=== PATIENT | male | born 1965 | race African-American/Black ===

== ENCOUNTER 2016-09-23 12:12 | Inpatient (IN) | payer OTHER ==
[2016-09-23 13:47] LABS: ALBUMIN 4.6 g/dL (3.5-5.0); CALCIUM 9.4 mg/dL (8.8-10.2); POTASSIUM 4.9 mmol/L (3.5-5.1); TOTAL BILIRUBIN 0.23 mg/dL (0.20-1.00); TOTAL PROTEIN 7.5 g/dL (6.3-8.3)
[2016-09-23 14:35] LABS: HEMATOCRIT 17.4 % (42.0-52.0); MANUAL DIFF NEEDED? YES; MCH 22.5 PG (27-31); MCV 97.8 FL (81-99); PLT 54 X1000 (130-400); RBC 1.78 XMIL (4.7-6.1)
[2016-09-23 15:21] LABS: INR 1.04; PTT 23.1 Seconds (22.0-36.0)
[2016-09-23 15:34] LABS: LYMPHS 84 % (21-51); MONO 6 % (1-9)
--- NOTE | 2016-09-23 15:45 | PROVIDER DOCUMENTATION ---
HPI-General Adult - General Chief Complaint: Allergic Reaction Stated Complaint: ALLERGIC REACTION Time Seen by Provider: 09/23/16 12:37 Source: patient Allergies/Adverse Reactions: Patient Allergies Allergy/AdvReac Type Severity Reaction Status Date / Time No Known Allergies Allergy Verified 10/21/12 19:48 Home Medications: Home Medication List Medication Instructions Recorded Confirmed Last Taken Type Hydroxyzine [Atarax] 25 mg PO TID 09/23/16 09/23/16 09/22/16 History Methylprednisolone [Medrol Dosepak] 4 mg PO DIRECTED 09/23/16 09/23/16 History - History of Present Illness -Gen Adult Nature of Presenting Problems: This pt presents today c complaints of what he believes may be an allergic reaction. 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 He reports mild inguinal pain. No fever, chills, n/v/d. No other complaints at this time. Location of Pain/Injury: reports: other (see hpi) Quality of Pain: reports: aching Severity: reports: mild Onset/Duration: reports: 2 days ago Timing: reports: still present, getting worse Associated Symptoms: reports: rash Similar Symptoms Previously?: No Recently seen or treated by another doctor?: No Review of Systems - Adult - REVIEW OF SYSTEMS - ADULT Constitutional: reports: no symptoms reported. denies: chills, fever Eyes: reports: no symptoms reported. denies: discharge, dry eyes Ears, Nose, Mouth & Throat: reports: no symptoms reported. denies: ear discharge, ear pain Cardiovascular: reports: no symptoms reported. denies: chest pain, edema Respiratory: reports: no symptoms reported. denies: chronic cough, cough Gastrointestinal: reports: no symptoms reported. denies: abdominal pain, hematemesis Genitourinary: reports: see HPI. denies: hematuria, hesitency Musculoskeletal: reports: no symptoms reported. denies: bone pain, back pain Integumentary: reports: see HPI, itching, rash. denies: hives, hair loss Neurological: reports: no symptoms reported. denies: ataxia, dizziness/vertigo Psychiatric: reports: no symptoms reported. denies: anxiety, anti-depressant use Endocrine: reports: no symptoms reported. denies: change in skin pigment, excessive sweating Hematologic/Lymphatic: reports: swollen lymph nodes. denies: blood clots, easy bruising Allergic/Immunologic: reports: no symptoms reported All Other Systems: Reviewed and Negative Past History - Adult - PAST MEDICAL HISTORY-ADULT Review of Records: reports: Old Records Reviewed, Nursing Assessment Review, Medications Reviewed, Social history reviewed & non-contributory. Major Childhood Illnesses: reports: denies history Cardiovascular: reports: denies history Respiratory: reports: denies history Gastrointestinal: reports: denies history Obstetrical/Gynecological: reports: denies history Genitourinary: reports: denies history Musculoskeletal: reports: denies history Neurological: reports: denies history Endocrine/Immune: reports: denies history Other Conditions: reports: denies history Physical Exam-General - PHYSICAL EXAM-ADULT Initial Vital Signs Reviewed: Yes - CONSTITUTIONAL General Appearance: appears well, alert, no apparent distress - EYES Eyes: PERRL/EOMI, pink conjunctivae - HEAD, EARS, NOSE, MOUTH & THROAT HENMT: normocephalic/atraumatic, moist mucous membranes, normal ENT inspection - NECK Neck: non-tender, full range of motion - RESPIRATORY Respiratory: chest non-tender, lungs clear, normal breath sounds - CARDIOVASCULAR Cardiovascular: normal peripheral pulses, regular rate, rhythm - GASTROINTESTINAL (ABDOMEN) Abdominal Exam: normal bowel sounds, non tender, soft - GENITOURINARY Male Genitalia: normal genitalia, hydrocele, inguinal lymphadenopathy, inguinal tenderness. negative: epididymal tenderness, scrotal swelling - LYMPHATIC Lymphatic: inguinal node tender, enlargement - MUSCULOSKELETAL Back Exam: normal inspection Extremity: normal range of motion, non-tender, normal gait - SKIN Integumentary: normal color, normal turgor, warm/dry - NEUROLOGIC Neurologic: grossly normal, no motor/sensory deficits Progress - PLAN OF CARE/RESULTS Progress/Plan/Lab Results: Laboratory Tests 09/23/16 09/23/16 09/23/16 13:16 13:16 13:26 WBC > 400.00 H* RBC 1.78 L Hgb 4.0 L* Hct 17.4 L MCV 97.8 MCH 22.5 L MCHC 23.0 L RDW Std Deviation Not Reportable Plt Count 54 L MPV Not Reportable Neut % (Auto) Not Reportable Lymph % (Auto) Not Reportable [place] % (Auto) Not Reportable Eos % (Auto) Not Reportable Baso % (Auto) Not Reportable Neut # (Auto) Not Reportable Lymph # (Auto) Not Reportable [place] # (Auto) Not Reportable Eos # (Auto) Not Reportable Baso # (Auto) Not Reportable Lymphocytes 84 H Monocytes 6 Unidentified Cells 10.0 PT 11.0 INR 1.04 PTT (Actin FS) 23.1 Sodium 140 Potassium 4.9 Chloride 100 Carbon Dioxide 24 L Anion Gap 16 BUN 25 H Creatinine 1.5 H Estimated GFR/1.73 m2 60 BUN/Creatinine Ratio 17 Glucose 116 H Calculated Osmolality 285 Calcium 9.4 Total Bilirubin 0.23 AST 11 ALT 12 Alkaline Phosphatase 118 Total Protein 7.5 Albumin 4.6 Globulin 2.9 Albumin/Globulin Ratio 1.6 Orders Category Date Time Status Saline Loc NOW Care 09/23/16 12:55 Active US SCROTUM [US] Stat Exams 09/23/16 13:17 Taken CBC WITH ELECTRONIC DIFF [HEME] Stat Lab 09/23/16 13:16 Results COMPREHENSIVE METABOLIC PANEL [CHEM] Stat Lab 09/23/16 13:16 Completed PROTIME WITH INR [COAG] Stat Lab 09/23/16 13:26 Completed PTT [COAG] Stat Lab 09/23/16 13:26 Completed TYPE & SCREEN [BBK] Stat Lab 09/23/16 13:16 Received Vital Signs Temp Pulse Resp BP Pulse Ox 09/23/16 12:35 99.1 F 110 H 18 120/68 100 No Known Allergies Allergy (Verified 10/21/12 19:48) Hydroxyzine [Atarax] 25 mg PO TID 09/23/16 Methylprednisolone [Medrol Dosepak] 4 mg PO DIRECTED 09/23/16 Laboratory 09/23/16 09/23/16 09/23/16 13:26 13:16 13:16 WBC > 400.00 H* RBC 1.78 L Hgb 4.0 L* Hct 17.4 L MCV 97.8 MCH 22.5 L MCHC 23.0 L RDW Std Deviation Not Reportable Plt Count 54 L MPV Not Reportable Neut % (Auto) Not Reportable Lymph % (Auto) Not Reportable [place] % (Auto) Not Reportable Eos % (Auto) Not Reportable Baso % (Auto) Not Reportable Neut # (Auto) Not Reportable Lymph # (Auto) Not Reportable [place] # (Auto) Not Reportable Eos # (Auto) Not Reportable Baso # (Auto) Not Reportable Lymphocytes 84 H Monocytes 6 Unidentified Cells 10.0 PT 11.0 INR 1.04 PTT (Actin FS) 23.1 Sodium 140 Potassium 4.9 Chloride 100 Carbon Dioxide 24 L Anion Gap 16 BUN 25 H Creatinine 1.5 H Estimated GFR/1.73 m2 60 BUN/Creatinine Ratio 17 Glucose 116 H Calculated Osmolality 285 Calcium 9.4 Total Bilirubin 0.23 AST 11 ALT 12 Alkaline Phosphatase 118 Total Protein 7.5 Albumin 4.6 Globulin 2.9 Albumin/Globulin Ratio 1.6 I am concerned about potential lymphocytic leukemia based on exam and labs. He reports that he used to see Dr. Brown but is no longer established c him. Will admit to hospitalist service. - ULTRASOUND (By Radiology) 1 US Study: Scrotum US Results: severe inguinal adenopathy; massive bilateral hydroceles; otherwise nad - CONSULTS/PCP/HOSPITALIST Notification #1 *Consult/PCP/Hospitalist*: Dr. Oakley Time Discussed: 15:46 Consult Disposition: Admit Departure - Departure Time of Disposition Order: 15:46 DIAGNOSIS: Inguinal adenopathy, Thrombocytopenia Leukocytosis Qualifiers: Leukocytosis type: lymphocytosis Qualified Code(s): D72.820 - Lymphocytosis ( symptomatic) Anemia Qualifiers: Anemia type: unspecified type Qualified Code(s): D64.9 - Anemia, unspecified Disposition: ADMITTED INPATIENT 09 Certified Medical Emergency: Emergent Condition: Stable Attestation - Physician/ ROBERT Attestation Patient care was provided by Advanced Practice Provider:: Yes Advanced Practice Provider:: Massimo Powell Advanced Practice Provider documentation review:: The Mid-level provider documentation, treatment plan and medical decision making was reviewed by the physician who agrees with all treatment and medical decision making by the P.
--- NOTE | 2016-09-23 15:55 | Diag Imaging Result Document ---
PROCEDURE NAME: US SCROTUM - 09/23/2016 SCROTAL ULTRASOUND: COMPARISON: None available. FINDINGS: There is very severe inguinal lymphadenopathy bilaterally. The largest measured inguinal lymph node on the right is 3.7 x 3.6 x 2.2 cm. On the left, the largest node is 3.2 x 3.1 x 2.2 cm. Lymphoma cannot be excluded. There are massive hydroceles bilaterally. The hydrocele on the right measures up to 11.1 cm in the greatest dimension. The hydrocele on the left measures up to 9 cm in the greatest dimension. There are a couple of subcentimeter cystic foci at the periphery of the left testicle and one at the periphery of the right testicle. These probably represent tiny tunica albuginea cysts. No solid testicular mass is identified. Both testicles exhibit normal Doppler flow. The right testicle measures up to 4.1 cm and the left testicle measures up to 4.1 cm in the greatest dimensions. The left epididymis could not be visualized. The right epididymis contains a 5 mm cyst. It is unremarkable, otherwise. There are bilateral testicular appendices that exhibit normal Doppler flow. Fluid is extending into the right inguinal canal where it contains several septations. IMPRESSION: 1. Very severe bilateral inguinal lymphadenopathy worrisome for potential lymphoma. 2. Massive bilateral hydroceles. 3. Subcentimeter cystic foci at the periphery of both testicles likely representing tiny tunica albuginea cysts. 4. No discrete testicular solid mass is identified and the testicles exhibit normal Doppler flow.
[2016-09-23 17:11] LABS: URIC ACID 6.6 mg/dL (3.4-7.0)
[2016-09-23] MEDS ORDERED: NS 1,000 ML IV SCH (17:45)
[2016-09-23] MEDS ORDERED: NS 1,000 ML ONE (17:52)
--- NOTE | 2016-09-23 19:01 | HISTORY AND PHYSICAL ---
CHIEF COMPLAINT: Bilateral inguinal masses. HISTORY OF PRESENT ILLNESS: A 51-year-old, male with no significant past medical history came to the emergency department with a chief complaint of bilateral inguinal masses and generalized itchiness. The patient states that he never had this kind of problem before. He started noticing itchiness after taking a bath with hot water last Tuesday. The next day he continued with the itchiness and also he started noticing some kind of inguinal lymphadenopathy. He went to a hospital/urgent care and was seen by apparently by a doctor, who recommended some antibiotics and steroids. The patient went home and he took his medications as prescribed but the masses at the level of the inguinal area were getting bigger and the itchiness was still present so he decided to come to the hospital today 09/23/2016 for medical evaluation. This patient was evaluated by Dr. Foster in the emergency department. Given his lab work and the physical examination, Dr. Foster from Hematology/Oncology, thinks that maybe this patient has leukemia or lymphoma. He was found in the emergency department to have WBC higher than 400, 000, hemoglobin was 4, platelets 54,000, BUN 25, and creatinine 1.5. Surprisingly this patient is not complaining of nausea, vomiting, fever or chills. This patient will be admitted to the [facility] unit. REVIEW OF SYSTEMS: General: This patient denies weight loss, nausea, vomiting , fever, diarrhea or constipation. The rest of the 14 point review of systems were evaluated and all of them negative except for HPI. PAST MEDICAL HISTORY: None. PAST SURGICAL HISTORY: Left knee surgery secondary to patella fracture. SOCIAL HISTORY: He denies alcohol, cigarette smoking, drugs. He works in maintenance/electricity. The patient is . ALLERGIES: No known drug allergies. TRANSFUSIONS: No blood transfusions before. HOME MEDICATIONS: No home medications. FAMILY HISTORY: Mother with hypertension. One aunt leukemia and grandmother with breast cancer. PHYSICAL EXAMINATION: VITAL SIGNS: Temperature 99.1 degrees, pulse 108, respiratory rate 32, blood pressure 121/71, oxygen saturation 100% on room air. HEENT: Head normocephalic. No trauma. PERRLA. NECK: Supple. He got submandibular lymphadenopathy and also occipital in the back of his neck. The largest diameter is about 4 cm on the left side of his neck. CHEST: Clear to auscultation. No wheezing. No rales. CARDIOVASCULAR: RRR. No murmurs. Tachycardic. ABDOMEN: Soft, nontender, nondistended. I do not feel any hepatosplenomegaly. GENITOURINARY: He has 2 large masses/lymphadenopathy bilaterally in the inguinal area and the size is about 10 x 5, mild tenderness to palpation without signs of infection. EXTREMITIES: No edema. No clubbing. No cyanosis. NEUROLOGICAL EXAMINATION: Patient is alert and oriented x3. No focal neurological deficits. LABORATORY: WBC more than 400,000, hemoglobin 4, hematocrit 17.4, platelets 54, 000. PT 11, INR 1, PTT 23.1. Sodium 140, potassium 4.9, chloride 100, bicarbonate 24, BUN 25, creatinine 1.5, glucose 116, uric acid 6.6, calcium 9.4, phosphorus 3.9, AST 11, ALT 12, alkaline phosphatase 118, albumin 4.6. ASSESSMENT AND PLAN: 1. Multiple lymphadenopathy, mainly in the inguinal area. Dr. Foster from Hematology/Oncology Department evaluated this patient. The possibility of leukemia/lymphoma is high. We are going to run some tests to see if this is an acute or chronic process. Also this patient will be on allopurinol and normal saline at 125 mL/h, acetaminophen for fever and SCDs for DVT prophylaxis. The family is at the bedside. All questions were answered. 2. Severe anemia. Right now this patient is going to get 2 units of PRBCs. We will monitor the hemoglobin and hematocrit. 3. Acute kidney injury. BUN and creatinine are a little bit elevated, it is around 25 and 1.5 respectively. We do not have a baseline on this patient. We will continue to monitor. This patient will be on IV fluids. 4. DVT prophylaxis. This patient will be on SCDs. 5. GI prophylaxis. This patient will be on pantoprazole IV. Further recommendations pending hospital course. [facility]
[2016-09-23] MEDS: NS 1,000 ML IV SCH (20:24)
[2016-09-23] MEDS: ZYLOPRIM PO SCH ×2 (20:24)
[2016-09-23] MEDS: PROTONIX IV SCH (20:25)
[2016-09-23] MEDS: TYLENOL PO PRN (21:10)
[2016-09-24 03:49] LABS: BASO% 1.4 % (0.0-0.8); EOS# 0.07 X1000 (0.0-0.7); HEMATOCRIT 20.8 % (42.0-52.0); HEMOGLOBIN 5.6 g/dL (14.0-18.0); LYMPH# 444.13 X1000 (1.2-3.4); LYMPH% 95.4 % (20.5-51.1); MANUAL DIFF NEEDED? YES; MCH 25.7 PG (27-31); MCHC 26.9 g/dL (33-37); MCV 95.4 FL (81-99); MONO# 14.85 X1000 (0.11-0.59); MONO% 3.2 % (1.7-9.3); PLT 44 X1000 (130-400); RBC 2.18 XMIL (4.7-6.1)
[2016-09-24 06:42] LABS: LYMPHS 96 % (21-51)
[2016-09-24 06:43] LABS: HYPOCHROM 2+
[2016-09-24] MEDS: NS 1,000 ML IV SCH ×2 (07:58→20:20)
[2016-09-24] MEDS: ZYLOPRIM PO SCH ×2 (07:59→20:20)
[2016-09-24] MEDS ORDERED: SENSORCAINE-MPF 0.5%/EPI 1:200,000 INJ ONE (08:17)
--- NOTE | 2016-09-24 08:29 | Diag Imaging Result Document ---
PROCEDURE NAME: CHEST-PORTABLE - 09/23/2016 SINGLE FRONTAL RADIOGRAPH OF THE CHEST: COMPARISON: None available. FINDINGS: The lungs are grossly clear. There is no definite pleural fluid collection. Cardiac silhouette appears somewhat prominent, probably, at least in part, due to magnification from AP technique. Central vasculature is unremarkable. No obvious hilar lymphadenopathy can be identified on this plain radiograph. IMPRESSION: Possible [id number] prominent heart. No definite acute pathology.
[2016-09-24] MEDS ORDERED: SENSORCAINE-MPF 0.5%/EPI 1:200,000 ONE (09:21)
[2016-09-24 09:41] LABS: FLOW CYTOMETERY SOURCE WHOLE BLOOD; LEUKEMIA LYMPHOMA BY FLOW REFERRED FOR TESTING
[2016-09-24 10:03] LABS: INR 1.07; PROTIME 11.4 Seconds (9.2-11.7)
[2016-09-24] MEDS ORDERED: DIPRIVAN 1% ONE (10:29)
[2016-09-24] MEDS ORDERED: VERSED ONE (10:34)
[2016-09-24] MEDS ORDERED: XYLOCAINE-MPF 2% ONE (10:36)
[2016-09-24 10:39] LABS: AGAP 15; ALKALINE PHOSPHATASE 104 U/L (32-122); BUN 21 mg/dL (8-22); CALCIUM 8.7 mg/dL (8.8-10.2); CHLORIDE 102 mmol/L (98-107); COSMO 285; GOT 9 U/L (10-34); GPT 9 U/L (10-44); POTASSIUM 4.1 mmol/L (3.5-5.1); SODIUM 141 mmol/L (136-145); TCO2 24 mmol/L (25-35); TOTAL BILIRUBIN 0.78 mg/dL (0.20-1.00); TOTAL PROTEIN 6.1 g/dL (6.3-8.3)
[2016-09-24 11:12] LABS: BASO% 1.2 % (0.0-0.8); EOS# 0.06 X1000 (0.0-0.7); HEMATOCRIT 25.3 % (42.0-52.0); HEMOGLOBIN 6.7 g/dL (14.0-18.0); MANUAL DIFF NEEDED? YES; MCH 26.2 PG (27-31); MCHC 26.5 g/dL (33-37); MCV 98.8 FL (81-99); PLT 45 X1000 (130-400); RBC 2.56 XMIL (4.7-6.1)
[2016-09-24 11:23] LABS: EOS 2 % (1-10); HYPOCHROM 1+; LYMPHS 90 % (21-51); NRBC 1 % (0-0); POLYCHROM OCCASIONAL
--- NOTE | 2016-09-24 12:07 | PROGRESS NOTE ---
DATE: 09/24/2016 SUBJECTIVE: This patient states that he is feeling about the same. He is not complaining of any specific symptoms at this moment. He just came back from a bone marrow biopsy, no sign of bleed at this moment. He has been running low-grade fever, pending lab work to rule out acute or chronic activity. OBJECTIVE: Vital Signs: Temperature 100.2 degrees, pulse 98, respiratory rate 16, blood pressure 113/68, O2 saturation 100% on room air. HEENT: Head normocephalic. No trauma. PERRLA. Neck: Supple. Submandibular lymphadenopathy and on the back of his neck. The largest diameter is about 4 cm on the left side of his neck. Chest: Clear to auscultation. No wheezing. No rales. Cardiovascular: RRR. No murmurs. No gallops. No rubs. Abdomen: Soft, nontender, nondistended. I do not feel any hepatosplenomegaly. Genitourinary: He has 2 large masses/lymphadenopathy bilaterally in the inguinal area and the size is about 10 x 5 cm, mild tenderness to palpation without signs of infection. Extremities: No edema. No clubbing. No cyanosis. Neurological: The patient is alert and oriented x3. No focal neurological deficits. LABORATORY: WBC is [id number] white blood cells. Hemoglobin 6.7, hematocrit 25.3, platelets 45,000. Sodium 141, potassium 4.1, chloride 102, bicarbonate 24, BUN 21, creatinine 1.4. Glucose 107. Calcium 8.7. Pending flow cytometry to rule out leukemia/lymphoma. Pending bone marrow biopsy results. ASSESSMENT AND PLAN: 1. Multiple adenopathy worrisome for lymphoma/leukemia. Hematology/Oncology Department is on board, and we are waiting for lab results and biopsy results. The patient is stable. I will continue with the same treatment for now. Because of a decrease of neutrophils I will put this patient on neutropenic precautions. 2. Severe anemia. I will come will continue transfusing this patient. The hemoglobin is below 7 still. 3. Acute kidney injury. BUN and creatinine are a little bit elevated still but compared with yesterday is a little bit better. I do not have a baseline of this patient. We will continue to monitor. This patient is already on IV fluids. 4. DVT prophylaxis. This patient will be on SCDs. 5. GI prophylaxis. I will continue with the same treatment. He is on pantoprazole IV.
[2016-09-24] MEDS: TYLENOL PO PRN ×2 (14:08→23:28)
[2016-09-24] MEDS: HYDREA PO SCH (14:10)
[2016-09-24] MEDS ORDERED: SODIUM CHLORIDE 0.9% INJ PRN (15:05)
[2016-09-24] MEDS ORDERED: PHENERGAN IV PRN (15:05)
--- NOTE | 2016-09-24 16:44 | CONSULTATION ---
DATE OF CONSULTATION: 09/23/2016 CONSULTATION FOR: A WBC count of greater than 400,000 worrisome for lymphoma versus leukemia. CONSULTATION REQUESTED BY: Hospitalist service. HISTORY OF PRESENT ILLNESS: Mr. Powell is a 51-year-old male who presented to [facility] complaining of scrotal swelling. The patient thought he was having allergic reaction as he was out working in the yard at his [employer] when he started to notice the symptoms. He was brought to the emergency room and labs were drawn and revealed him to have white blood cell count of greater than 400,000. He also had a hemoglobin of 4.0 and a platelet count of 54,000. Scrotal ultrasound showed the patient to have severe bilateral inguinal lymphadenopathy worrisome for lymphoma. The patient has now been admitted for further evaluation and workup. At this time he is status post bone marrow biopsy. He has no other issues or complaints at this time. PAST MEDICAL HISTORY: None. PAST SURGICAL HISTORY: Status post left knee surgery secondary to patella fracture. SOCIAL HISTORY: He currently works daytime caregiver. He is . He denies any alcohol, drug or tobacco use. FAMILY HISTORY: His mother has hypertension. His father had an [place]. His maternal grandmother had breast cancer. His maternal aunt had leukemia which he states is CLL. REVIEW OF SYSTEMS: As per the HPI. All else is negative or noncontributory. PHYSICAL EXAM: Vital Signs: Temperature currently is 100.2, T-max is 102 degrees, heart rate is 98, respirations 16, blood pressure 113/68, O2 saturation 100% on room air. General: male lying in hospital bed. No acute distress. He has 3 family members by his bedside. He did recently have his bone marrow so he is in a mild amount of pain. HEENT: Head normocephalic, atraumatic. Pupils equal, round, reactive. Ears, nose, throat, neck, and mouth. Oral mucosa is normal. Trachea is midline. Patient does have scattered adenopathy throughout the cervical region. Most are subcentimeter to no larger than 1 cm. Cardiovascular: S1-S2 heard, no murmurs, gallops, rubs appreciated. Respiratory: Clear to auscultation bilaterally. No respiratory effort. Abdomen: Soft, nondistended. Positive bowel sounds. Musculoskeletal: No bony abnormalities noted. Extremities: No edema or swelling. Skin: No rashes. Neurologic: Patient is alert and oriented x3. No focal motor deficits. Lymphatics: Patient has severe bilateral inguinal adenopathy. LABS AND STUDIES: The patient's current CBC shows a white blood cell count of 479.59, a hemoglobin of 6.7, hematocrit 25.3 and a platelet count of 45,000. His flow cytometry is currently pending. His FISH is pending. His bone marrow biopsy results are also pending. ASSESSMENT AND PLAN: 1. He has inguinal lymphadenopathy as well as a severely elevated white blood cell count. Most likely the patient has a chronic lymphocytic leukemia that is not currently under very good control. As previously mentioned, he has several studies that are currently pending that are all part of making a definitive diagnosis. Will follow these results and once they return will proceed with further treatment and recommendations. 2. Profound anemia secondary to what is likely a leukemia. Will continue to transfuse p.r.n. Patient has already received 3 units of packed red blood cells and is about to get a 4th unit. 3. Thrombocytopenia. Patient is overall stable. No bleeding. Will continue to monitor. Transfuse as needed. 4. Tumor lysis syndrome prophylaxis. Patient is currently on allopurinol which will continue at 300 mg twice a day. I want to thank you for this consult, allowing us to participate in Mr. Powell's care at [facility]. Will continue to follow along, adjust our treatment plan per his hospital course. Dictated by SYED Terry for Ana Foster MD
[2016-09-24] MEDS: SODIUM CHLORIDE 0.9% INJ SCH (17:24)
[2016-09-24] MEDS: PROTONIX IV SCH (17:24)
[2016-09-25] MEDS: NS 1,000 ML IV SCH ×3 (03:43→22:30)
[2016-09-25 05:47] LABS: AGAP 13; ALBUMIN 3.5 g/dL (3.5-5.0); ALKALINE PHOSPHATASE 90 U/L (32-122); BUN 21 mg/dL (8-22); CALCIUM 8.5 mg/dL (8.8-10.2); CHLORIDE 102 mmol/L (98-107); COSMO 279; GOT 12 U/L (10-34); GPT 11 U/L (10-44); POTASSIUM 4.7 mmol/L (3.5-5.1); SODIUM 138 mmol/L (136-145); TCO2 23 mmol/L (25-35); TOTAL BILIRUBIN 0.72 mg/dL (0.20-1.00); TOTAL PROTEIN 5.9 g/dL (6.3-8.3); URIC ACID 3.3 mg/dL (3.4-7.0)
[2016-09-25 05:48] LABS: BASO% 0.7 % (0.0-0.8); EOS# 0.02 X1000 (0.0-0.7); HEMOGLOBIN 6.5 g/dL (14.0-18.0); LYMPH# 311.96 X1000 (1.2-3.4); MANUAL DIFF NEEDED? YES; MCH 25.9 PG (27-31); MCHC 27.1 g/dL (33-37); MCV 95.6 FL (81-99); MONO# 10.86 X1000 (0.11-0.59); MONO% 3.3 % (1.7-9.3); PLT 39 X1000 (130-400); RBC 2.51 XMIL (4.7-6.1)
[2016-09-25 07:22] LABS: HYPOCHROM 1+; LYMPHS 100 % (21-51)
[2016-09-25] MEDS: ZYLOPRIM PO SCH ×2 (10:11→22:29)
[2016-09-25] MEDS: HYDREA PO SCH (10:11)
[2016-09-25] MEDS: ROBITUSSIN-DM PO PRN ×3 (10:59→19:44)
--- NOTE | 2016-09-25 11:12 | PROGRESS NOTE ---
DATE: 09/25/2016 SUBJECTIVE: This patient states that he is feeling about the same. He is not complaining of any specific symptoms at this moment. At the moment of my evaluation, this patient was sitting on a chair with no complaints. He is tolerating p.o. He has been having low grade fever. OBJECTIVE: Vital Signs: Temperature 99.8 degrees, pulse 89, respiratory rate 20, blood pressure 107/65, O2 saturation 100% on room air. HEENT: Head normocephalic. No trauma. PERRLA. Neck: Supple. Submandibular lymphadenopathy and on the back of his neck the largest diameter of the lymphadenopathy is about 4 cm on the left side of his neck. Chest: Clear to auscultation. No wheezing. No rales. Cardiovascular: RRR. No murmurs. No gallops. No rubs. Abdomen: Soft, nontender, nondistended. I do not feel any hepatosplenomegaly. Genitourinary: He has 2 large masses/lymphadenopathy bilaterally in the inguinal area and the size is about 10 x 5 cm. Mild tenderness to palpation without sign of infection. Extremities: No edema. No clubbing. No cyanosis. Neurological: The patient is alert and oriented x3. No focal neurological deficits. LABORATORY: WBC 325,000, hemoglobin 6.5, hematocrit 24, platelets 39,000. Neutrophils 0. Sodium 138, potassium 4.7, chloride 102, bicarbonate 23, BUN 21, creatinine 1.4, glucose 106, calcium 8.5. ASSESSMENT AND PLAN: 1. Multiple adenopathy worrisome for lymphoma/leukemia. Hematology Oncology Department is following this patient. We are waiting for lab results and biopsy results. This patient is stable. I will continue with the same treatment for now. This patient is on neutropenic precautions. 2. Severe anemia. His hemoglobin is a little bit below 7 but he is stable. I will continue to monitor. His vital signs are stable. 3. Acute kidney injury. Probably this is his baseline. No changes since admission even though he has been getting fluids but I will continue to monitor. I do not have any records from previous kidney function. 4. Tumor lysis syndrome prophylaxis. This patient is getting allopurinol, we will continue with the same treatment. 5. DVT prophylaxis. This patient is on SCDs, the platelet count is low. 6. GI prophylaxis. We will continue with pantoprazole IV.
[2016-09-25] MEDS: SODIUM CHLORIDE 0.9% INJ SCH (22:28)
[2016-09-25] MEDS: TYLENOL PO PRN (22:28)
[2016-09-25] MEDS: PROTONIX IV SCH (22:29)
[2016-09-26 05:46] LABS: AGAP 10; ALBUMIN 3.3 g/dL (3.5-5.0); ALKALINE PHOSPHATASE 87 U/L (32-122); BUN 19 mg/dL (8-22); CALCIUM 8.3 mg/dL (8.8-10.2); CHLORIDE 104 mmol/L (98-107); COSMO 278; GOT 12 U/L (10-34); GPT 13 U/L (10-44); POTASSIUM 4.7 mmol/L (3.5-5.1); SODIUM 138 mmol/L (136-145); TCO2 24 mmol/L (25-35); TOTAL BILIRUBIN 0.42 mg/dL (0.20-1.00); TOTAL PROTEIN 5.8 g/dL (6.3-8.3)
[2016-09-26] MEDS: NS 1,000 ML IV SCH ×3 (05:49→22:21)
[2016-09-26 06:19] LABS: HEMOGLOBIN 7.2 g/dL (14.0-18.0); MANUAL DIFF NEEDED? YES; MCH 26.3 PG (27-31); MCHC 26.7 g/dL (33-37); MCV 98.5 FL (81-99); RBC 2.74 XMIL (4.7-6.1)
[2016-09-26 06:21] LABS: PLT 26 X1000 (130-400)
[2016-09-26 06:58] LABS: LYMPHS 100 % (21-51)
--- NOTE | 2016-09-26 09:53 | PROGRESS NOTE ---
DATE: 09/26/2016 SUBJECTIVE: This patient states that he is feeling about the same. He is not complaining of any specific symptoms right now. At the moment of my evaluation, this patient was sitting on a chair with no complaints. He is tolerating p.o. OBJECTIVE: Vital Signs: Temperature 99 degrees, pulse 89, respiratory rate 22, blood pressure 102/64, oxygen saturation 100% on room air. HEENT: Head normocephalic. No trauma. PERRLA. Neck: Submandibular lymphadenopathy and also on the back of his neck, the largest diameter of the lymphadenopathy is about 4 cm on the left side of his neck. Chest: Clear to auscultation. No wheezing. No rales. Cardiovascular: RRR. No murmurs. No gallops or rubs. Abdomen: Soft, nontender, nondistended. I do not feel any hepatosplenomegaly. Genitourinary: He has 2 large masses/lymphadenopathy bilaterally in the inguinal area and the size is about 10 x 5 cm. Mild tenderness to palpation without sign of infection. Extremities: No edema. No clubbing. No cyanosis. Neurological Examination: Patient is alert and oriented x3. No focal neurological deficits. Laboratory: WBC is 302,000, hemoglobin 7.2, hematocrit 27, platelets 26,000. Sodium 138, potassium 4.7, chloride 104, bicarbonate 24, BUN 19, creatinine 1.4, glucose 102, calcium 8.3. Albumin 3.3. ASSESSMENT AND PLAN: 1. Multiple adenopathy, worrisome for lymphoma/leukemia. Hematology/oncology department is following this patient. We are awaiting for the laboratory results and biopsy results. This patient is stable. I will continue with the same treatment for now. This patient is on neutropenic precautions. 2. Severe anemia. His hemoglobin is better compared with yesterday. It is above 7. I will continue to monitor. 3. Thrombocytopenia. The platelet count dropped to 26,000. We will transfuse this patient today. 4. Acute kidney injury, probably this is a chronic kidney disease. The creatinine has been around the same. Probably, this is his baseline. I do not have any records from previous kidney function. 5. Tumor lysis syndrome prophylaxis. This patient is getting allopurinol. We will continue with the same management. 6. Deep venous thrombosis prophylaxis. This patient is on sequential compression devices. The platelet count is low. 7. Gastrointestinal prophylaxis. Continue with pantoprazole intravenous.
[2016-09-26] MEDS: ZYLOPRIM PO SCH ×2 (11:29→20:20)
[2016-09-26] MEDS: HYDREA PO SCH (11:30)
[2016-09-26] MEDS: ROBITUSSIN-DM PO PRN ×2 (14:34→20:20)
[2016-09-26] MEDS: SODIUM CHLORIDE 0.9% INJ SCH (20:20)
[2016-09-26] MEDS: PROTONIX IV SCH (20:20)
[2016-09-26] MEDS: TYLENOL PO PRN (23:41)
[2016-09-27 05:49] LABS: HEMATOCRIT 25.8 % (42.0-52.0); MANUAL DIFF NEEDED? YES; MCH 26.5 PG (27-31); MCHC 27.1 g/dL (33-37); MCV 97.7 FL (81-99); PLT 46 X1000 (130-400); RBC 2.64 XMIL (4.7-6.1)
[2016-09-27 06:00] LABS: AGAP 10; ALBUMIN 3.1 g/dL (3.5-5.0); ALKALINE PHOSPHATASE 78 U/L (32-122); BUN 18 mg/dL (8-22); CALCIUM 8.1 mg/dL (8.8-10.2); CHLORIDE 102 mmol/L (98-107); COSMO 270; GOT 14 U/L (10-34); GPT 14 U/L (10-44); POTASSIUM 4.4 mmol/L (3.5-5.1); SODIUM 134 mmol/L (136-145); TCO2 22 mmol/L (25-35); TOTAL BILIRUBIN 0.29 mg/dL (0.20-1.00); TOTAL PROTEIN 5.6 g/dL (6.3-8.3)
[2016-09-27] MEDS: NS 1,000 ML IV SCH ×3 (06:38→22:16)
[2016-09-27 07:03] LABS: URIC ACID 2.5 mg/dL (3.4-7.0)
[2016-09-27 07:04] LABS: LYMPHS 90 % (21-51); MONO 4 % (1-9)
[2016-09-27] MEDS: HYDREA PO SCH (09:17)
[2016-09-27] MEDS: ZYLOPRIM PO SCH ×2 (09:17→20:02)
[2016-09-27] MEDS: ROBITUSSIN-DM PO PRN ×3 (09:18→22:18)
--- NOTE | 2016-09-27 17:14 | PROGRESS NOTE ---
DATE: 09/27/2016 SUBJECTIVE: This patient has no complaints today. He denies nausea, vomiting, diarrhea, constipation. No chest pain. No fever. No chills. OBJECTIVE: Vital Signs: Temperature 99.7 degrees, pulse 89, respiratory rate 28, blood pressure 108/62, oxygen saturation 100% on room air. HEENT: Head normocephalic. No trauma. PERRLA. Neck: Submandibular lymphadenopathy and also lymphadenopathy on the back of his neck and also sides. The largest diameter of the lymphadenopathy is about 4 cm on the left side of his neck. Chest: Clear to auscultation. No wheezing. No rales. Cardiovascular: RRR. No murmurs. No gallops. No rubs. Abdomen: Soft, nontender, nondistended. No hepatosplenomegaly. Genitourinary: He has 2 large masses/lymphadenopathy bilaterally in the inguinal area and the size is about 10 x 5 cm of diameter. Mild tenderness to palpation but without signs of infection. Extremities: No edema. No clubbing. No cyanosis. Neurological: The patient is alert and oriented x3. No focal neurological deficits. LABORATORY: WBC 283,000, hemoglobin 7, hematocrit 25.8, platelets 46,000. Sodium 138, potassium 4.4, chloride 102, bicarbonate 22, BUN 18, creatinine 1.3, glucose 95, calcium 8.1, uric acid 2.5, albumin 3.1. ASSESSMENT AND PLAN: 1. Multiple adenopathy, worrisome for lymphoma/leukemia. Hematology/oncology department is following this patient. We are waiting for the laboratory results and biopsy results. This patient is stable. We will continue with the same management for now. I will continue also with neutropenic precautions. 2. Severe anemia. His hemoglobin is 7 today. Will continue to monitor. 3. Thrombocytopenia. This is status post platelet transfusion. The platelet count yesterday was 26,000. No signs of bleed. We will continue to monitor. 4. Acute kidney injury. This is getting better but probably this is his baseline. 5. Tumor lysis syndrome prophylaxis. This patient is getting allopurinol. Will continue with the same management. 6. Deep vein thrombosis prophylaxis. We are going to continue using SCDs. 7. Gastrointestinal prophylaxis. Continue with pantoprazole. [facility]
[2016-09-27] MEDS: TYLENOL PO PRN (20:01)
[2016-09-27] MEDS: PROTONIX IV SCH (20:02)
[2016-09-28] MEDS: TYLENOL PO PRN ×2 (03:40→15:20)
[2016-09-28 05:20] LABS: AGAP 12; ALBUMIN 3.2 g/dL (3.5-5.0); ALKALINE PHOSPHATASE 76 U/L (32-122); BUN 17 mg/dL (8-22); CHLORIDE 100 mmol/L (98-107); COSMO 268; GOT 27 U/L (10-34); GPT 15 U/L (10-44); POTASSIUM 4.8 mmol/L (3.5-5.1); SODIUM 133 mmol/L (136-145); TCO2 21 mmol/L (25-35); TOTAL BILIRUBIN 0.36 mg/dL (0.20-1.00); TOTAL PROTEIN 5.6 g/dL (6.3-8.3)
[2016-09-28 05:28] LABS: BASO% 0.6 % (0.0-0.8); EOS# 0.03 X1000 (0.0-0.7); HEMOGLOBIN 7.1 g/dL (14.0-18.0); LYMPH# 301.05 X1000 (1.2-3.4); LYMPH% 96.3 % (20.5-51.1); MANUAL DIFF NEEDED? YES; MCH 28.9 PG (27-31); MCHC 30.9 g/dL (33-37); MCV 93.5 FL (81-99); MONO# 9.58 X1000 (0.11-0.59); MONO% 3.1 % (1.7-9.3); PLT 55 X1000 (130-400); RBC 2.46 XMIL (4.7-6.1)
[2016-09-28] MEDS: NS 1,000 ML IV SCH ×2 (05:32→17:26)
[2016-09-28 06:36] LABS: LYMPHS 100 % (21-51)
[2016-09-28] MEDS: HYDREA PO SCH (09:28)
[2016-09-28] MEDS: ZYLOPRIM PO SCH ×2 (09:28→19:21)
[2016-09-28] MEDS: MAXIPIME 2 GM/NS 100 ML IV SCH ×2 (09:33→19:20)
--- NOTE | 2016-09-28 14:23 | PROGRESS NOTE ---
DATE: 09/28/2016 SUBJECTIVE: Patient reports having had fever last night. No nausea, vomiting, abdominal pain, or chest pain. OBJECTIVE: Vital Signs: Temperature this morning 98.5, but today at 4 a.m. it was 103.1. Heart rate 87, respiratory rate 16, blood pressure 104/74, O2 saturation 100% on room air. General: This is a 51-year-old male, lying in bed in no acute distress. HEENT: Head is normocephalic and atraumatic. Anicteric sclerae and pale conjunctivae. Mucous membranes are moist. Neck: Submandibular lymphadenopathy and also on the back of the neck. Largest is about 4 cm on the left side. Cardiovascular: S1 and S2 heard. No murmurs, gallops, or rubs. Regular rate and rhythm. Respiratory: Clear bilaterally to auscultation. No work of breathing or use of accessory muscles. Abdomen: Soft. Nontender to palpation. Bowel sounds present. No organomegaly. Extremities: No clubbing, cyanosis, or edema. Peripheral pulses present in both legs. Genitourinary: Two large masses/lymphadenopathy bilaterally on both sides in the inguinal area that are approximately 10 x 5 cm. Neurological: Patient alert and oriented x3. Able to move all 4 extremities. Cranial nerves 2-12 are grossly normal. LABORATORY DATA: White cell count of 312,000 hemoglobin 7.1, hematocrit 23.0, platelets 55,000, absolute neutrophil count zero. BMP completely unremarkable except for mild hyponatremia of 133. ASSESSMENT AND PLAN: 1. Possible chronic lymphocytic leukemia. Hematology/Oncology is following this patient. Still having high white cell count. As mentioned before, Dr. Foster from Oncology is managing this patient. We will continue following recommendations. 2. Severe anemia. Today the hemoglobin is 7.1, so I think we are going to transfuse 2 units of blood and check CBC tomorrow. 3. Thrombocytopenia. Today, platelet count is better at 55. We will continue with the same management. 4. Febrile neutropenia. The patient has developed a fever today and considering his absolute neutrophil count of zero, we will start this patient on cefepime. 5. Hemolysis syndrome prophylaxis. Patient is on allopurinol. 6. Deep vein thrombosis prophylaxis with sequential compression devices. 7. Prophylaxis with Protonix. Addendum: Talked with Dr. Ana Foster. She think fever patient is having is secondary to cancer and will continue having those for a while. He had many cultures done and all those are negative so from her standpoint pt can be discharged today and will have a follow up in a week. JA
[2016-09-28] MEDS ORDERED: NS 500 ML ONE (16:48)
--- NOTE | 2016-09-28 18:05 | DISCHARGE SUMMARY ---
ADMISSION DATE: 09/23/2016 DISCHARGE DATE: 09/28/2016 CONSULTATIONS: Ana Foster M.D. PERTINENT PROCEDURES: Pending bone marrow biopsy. DISCHARGE DIAGNOSES: 1. Possible chronic lymphocytic leukemia. Patient being followed by Dr. Foster. Still having a high white cell count. Dr. Hatch did speak with Dr. Foster. The patient is okay to be discharged with Augmentin, allopurinol and Hydrea, and follow up with her in 1 week. 2. Severe anemia status post several units of PRBCs. 3. Thrombocytopenia. Aware. 4. Febrile neutropenia. Dr. Hatch spoke with Dr. Ana Foster. She thinks the fever is secondary to the cancer and will continue having those for a while. He has had many cultures done throughout his stay and those have all been negative so far. Also from her standpoint he is okay to be discharged today and follow up with her in a week. 5. Hemolysis syndrome. Patient on allopurinol. HOSPITAL COURSE: Briefly, Mr. Powell is a 51-year-old, male with no significant past medical history who came to the emergency department with a chief complaint of bilateral inguinal masses and generalized itching. Patient stated that he had never had this kind of problem before. He started itching after taking a bath with hot water the previous Tuesday. The next day he continued with the itchiness and started noticing some kind of inguinal lymphadenopathy. He went to Urgent Care and was seen by a doctor who recommended antibiotics and steroids. Patient went home and took his medicine as prescribed but the masses at the level of the inguinal area were getting bigger and the itchiness was still present so he decided to come into the ED for evaluation. The patient was evaluated by Dr. Foster in the emergency room. His lab work and physical examination per Hematology thought the patient might have leukemia or lymphoma. He was found to have a white count higher than 400,000, hemoglobin was 4 and platelet count 54,000 with a BUN of 25 and creatinine of 1.5. The patient did not complain of any nausea, vomiting, fever or chills. He was admitted to the [facility] unit. Patient was started on allopurinol. He was transfused with several units of PRBCs and monitored daily. For his acute kidney injury he was started on gentle hydration. Dr. Foster felt that the patient had chronic lymphocytic leukemia that is not currently under very good control at the time of his admission. In reference to his thrombocytopenia, he was stable, no obvious signs of bleeding. Several cultures , urine and blood, were also obtained. They have all remained negative. Hemolysis syndrome prophylaxis was allopurinol and continued on that. Again he was transfused p.r.n. for low hemoglobin and hematocrit. Mr. Powell continued to have an extremely elevated white count. On the day of his discharge his white count is 312.69, hemoglobin of 7.1 and 23. Blood pressures have remained stable. He has remained with a low-grade fever anywhere from 99.[address] Hatch spoke with Dr. Ana Foster. She thinks the fever is secondary to the cancer and will continue having those for a while as well as his white count. Many cultures as stated previously have been negative. He will prophylactically go home on Augmentin for 1 week and at that time he will follow up with Dr. Foster. VITAL SIGNS AT TIME OF DISCHARGE: Temperature is 99.8, heart rate 85, respirations 14, blood pressure 102/60, O2 is 100% on room air. DISCHARGE MEDICINES: 1. Hydroxyzine 25 mg p.o. t.i.d. 2. Robitussin DM 10 mL p.o. q.4 hours p.r.n. [id number]. 3. Augmentin 875/125, 1 each p.o. b.i.d. 4. Zyloprim 300 mg p.o. b.i.d. FOLLOWUP: 1. The patient is being discharged back home. 2. The patient will need to follow up with a primary care physician. A general list has been provided to him. 3. They also need followup with Dr. Foster in 1 week. 4. Patient can return to the ED for any worsening of symptoms. DISCHARGE TIME: 40 minutes. Dictated by JESSIE Kelley for Antonio Kaur MD MTDD
[2016-09-28] MEDS: PROTONIX IV SCH (19:20)
[2016-09-28 19:29] VITALS: BP 109/65
== END 2016-09-28 21:01 | disposition home or self-care (01) | DRG 841 ==
LOC: ED 12:12 → 3S 18:35
PROVIDERS: ATTEND Internal Medicine
PROC: 30233N1 Transfusion of Nonautologous Red Blood Cells into Peripheral Vein, Percutaneous Approach (ICD-10-PCS; 2016-09-23)
PROC: 07DR3ZX Extraction of Iliac Bone Marrow, Percutaneous Approach, Diagnostic (ICD-10-PCS; principal; 2016-09-24 09:20)
PROC: 30233R1 Transfusion of Nonautologous Platelets into Peripheral Vein, Percutaneous Approach (ICD-10-PCS; 2016-09-26)
DX: C91.10 Chronic lymphocytic leukemia of B-cell type not having achieved remission (principal); N17.9 Acute kidney failure, unspecified; D70.9 Neutropenia, unspecified; D69.6 Thrombocytopenia, unspecified; K92.1 Melena; D64.9 Anemia, unspecified; Z82.49 Family history of ischemic heart disease and other diseases of the circulatory system; Z80.6 Family history of leukemia; Z80.3 Family history of malignant neoplasm of breast; R50.81 Fever presenting with conditions classified elsewhere
CPT/HCPCS: 36430; 71010; 76870; 80053; 83615; 84100; 84443; 84550; 85025; 85610; 85730; 85999; 86850; 86870; 86900; 86901; 86920; 86922; 88184; 88185; 94761; 99999; C9113; J0692; J2250; J7030; J7040; P9016; P9035; S0176; 99285-25; S0020; S0164

== ENCOUNTER 2019-11-15 11:17 | Inpatient (IN) ==
--- NOTE | 2019-11-15 11:58 | Diag Imaging Result Doc PS360 ---
EXAM: CHEST-2 VIEWS 11/15/2019 HISTORY: ANEMIA IN NEOPLSTIC DISEASE,CHRONIC LYMPHOCYTIC LEUKEMIA OF B-FREDERICK TECHNIQUE: PA and lateral chest COMMENT: There is dense alveolar opacification in the right upper lobe. This was not present on 09/06/2019. The platelike atelectasis which was previously present in the lower lobes has resolved. IMPRESSION: Right upper lobe pneumonia. Electronically signed by Talib Casanova 11/15/2019 11:56 AM
[2019-11-15] MEDS ORDERED: ZOFRAN IV PRN (14:17)
[2019-11-15] MEDS ORDERED: VANCOMYCIN IV PER PHARMACY MISC SCH (14:30)
[2019-11-15] MEDS ORDERED: NS 1,000 ML IV SCH (14:30)
[2019-11-15] MEDS ORDERED: LOVENOX SUBQ SCH (14:30)
[2019-11-15] MEDS: NS 1,000 ML IV ONE ×2 (15:30→20:22)
[2019-11-15] MEDS: TYLENOL PO PRN ×2 (16:02→23:44)
[2019-11-15] MEDS ORDERED: NS 1,000 ML IV ONE ×2 (16:43→19:06)
[2019-11-15 16:59] LABS: INR 1.26
[2019-11-15 17:10] LABS: BASO# 0.02 X1000 (0.0-0.2); BASO% 0.1 % (0.0-0.8); HEMATOCRIT 18.6 % (42.0-52.0); IMM GRAN# 0.03 X1000 (0.0-0.04); IMM GRAN% 0.1 % (0.0-0.5); LYMPH# 20.97 X1000 (1.2-3.4); LYMPH% 90.6 % (20.5-51.1); MCH 26.1 PG (27-31); MCHC 31.2 g/dL (33-37); MCV 83.8 FL (81-99); MONO# 0.14 X1000 (0.11-0.59); MONO% 0.6 % (1.7-9.3); NEUT# 1.99 X1000 (1.4-6.5); NEUT% 8.6 % (42.2-75.2); PLT 73 X1000 (130-400)
[2019-11-15 17:11] LABS: RBC 2.22 XMIL (4.7-6.1); WBC 23.15 X1000 (4.8-10.8)
--- NOTE | 2019-11-15 17:12 | HISTORY AND PHYSICAL ---
ADDENDUM REPORT A 54-year-old gentleman with history of CLL, who came in, he was not feeling very well. He had been on Venetoclax and there was concern over tumor lysis syndrome. He was due to get rasburicase. He showed up the office today feeling generalized weakness, malaise. When he was directly admitted, he has had a temperature of 102.8 degrees. We are still waiting on blood work. He is neutropenic, so admitted for putatively neutropenic fever. We have placed him on broad spectrum antibiotics, Neupogen. He will probably need a sepsis workup which I think we are in the process of pursuing. In any case, we will continue to pursue hydration and sepsis workup. Continue to follow closely. This is a [id number] encounter note with Eve Segovia. We will continue to monitor closely. cc: Brendan Perera MD MTDD
[2019-11-15 17:14] LABS: HEMOGLOBIN 5.8 g/dL (14.0-18.0)
[2019-11-15 17:31] LABS: ANISOCYTOSIS 3+; LYMPHS 90 % (21-51); SEGS 10 % (42-75)
[2019-11-15 17:32] LABS: MICROCYTOSIS 1+
[2019-11-15 17:33] LABS: ALB/GLOB RATIO 0.9; ALBUMIN 3.3 g/dL (3.5-5.0); CALCIUM 8.2 mg/dL (8.8-10.2); CREATININE 5.1 mg/dL (0.7-1.2); TOTAL BILIRUBIN 7.74 mg/dL (0.20-1.00); TOTAL PROTEIN 6.9 g/dL (6.3-8.3)
[2019-11-15 17:37] LABS: POTASSIUM 6.6 mmol/L (3.5-5.1)
[2019-11-15 17:41] LABS: MAGNESIUM 3.9 mg/dL (1.5-2.7); PHOSPHORUS 7.9 mg/dL (2.7-4.5)
[2019-11-15] MEDS ORDERED: VANCOMYCIN 1,400 MG in NS 250 ML IV ONE ×2 (18:00→21:00)
[2019-11-15] MEDS ORDERED: D50W SYRINGE IV ONE (18:52)
[2019-11-15] MEDS ORDERED: HUMULIN R IV ONE (18:52)
[2019-11-15] MEDS ORDERED: CALCIUM GLUCONATE 1 GM in NS 50 ML IV ONE (18:52)
[2019-11-15] MEDS ORDERED: SODIUM BICARBONATE 8.4% IV PUSH ONE (18:52)
[2019-11-15] MEDS ORDERED: NS 500 ML IV ONE (19:04)
[2019-11-15] MEDS ORDERED: XOPENEX HFA INH ONE (19:04)
--- NOTE | 2019-11-15 19:07 | HISTORY AND PHYSICAL ---
CHIEF COMPLAINT: Fever generalized body aches. HISTORY OF PRESENT ILLNESS: This is a 54-year-old gentleman with DICTATION ENDS HERE. Dictated by JESSIE Da Silva for Brendan Perera MD cc: JESSIE Da Silva MD
[2019-11-15] MEDS ORDERED: NS IV ONE (20:00)
[2019-11-15] MEDS ORDERED: ELITEK IV ONE (20:00)
--- NOTE | 2019-11-15 20:06 | EKG Report ---
Test Performed on : 11/15/2019 7:47:21 PM Test Reason : HYPERKALEMIA Blood Pressure : / mmHG Vent. Rate : 103 BPM Atrial Rate : 103 BPM P-R Int : 138 ms QRS Dur : 094 ms QT Int : 336 ms P-R-T Axes : 058 037 057 degrees QTc Int : 440 ms Poor data quality, interpretation may be adversely affected Sinus tachycardia. Otherwise normal ECG When compared with ECG of 05-SEP-2019 09:56, T wave amplitude has increased in Lateral leads Confirmed by Katy PURVIS, Glen Hoang ([id number]) on 11/16/2019 9:25:01 AM
[2019-11-15 20:25] LABS: URINE SOURCE CLEAN CATCH
[2019-11-15 20:37] LABS: BILIRUBIN URINE NEGATIVE (NEGATIVE); BLOOD URINE TRACE (NEGATIVE); COLOR YELLOW; GLUCOSE URINE NEGATIVE (NEGATIVE); KETONE URINE NEGATIVE (NEGATIVE); LEUKOCYTES URINE NEGATIVE (NEGATIVE); NITRITE URINE NEGATIVE (NEGATIVE); PROTEIN URINE 70 mg/dL (NEGATIVE); SP GRAVITY URINE 1.014; TURBIDITY URINE HAZY (CLEAR); UROBILINOGEN URINE 2 mg/dL (NORMAL)
[2019-11-15] MEDS: SODIUM BICARBONATE 8.4% 150 MEQ in D5W 1,000 ML IV SCH (20:41)
[2019-11-15 20:52] LABS: UR EPITHELIAL CELLS <10 /HPF (<10); URINE BACTERIA NEGATIVE /HPF; URINE CASTS NONE SEEN; URINE CRYSTALS NONE SEEN; URINE SMALL ROUND CELLS NONE SEEN; URINE WBC <10 /HPF (<10); URINE YEAST NONE SEEN
[2019-11-15] MEDS: VENTOLIN HFA INH SCH (21:25)
[2019-11-15] MEDS: GRANIX SUBQ SCH (22:00)
[2019-11-15] MEDS: PROTONIX IV SCH (22:00)
[2019-11-15] MEDS: ZYLOPRIM PO SCH (22:01)
[2019-11-15] MEDS: SODIUM CHLORIDE 0.9% INJ SCH (22:01)
[2019-11-15] MEDS: MAXIPIME 2 GM/NS 2 GM/100 ML IVPB IV SCH (22:01)
[2019-11-16 00:09] LABS: CALCIUM 7.8 mg/dL (8.8-10.2); CREATININE 4.6 mg/dL (0.7-1.2); POTASSIUM 5.4 mmol/L (3.5-5.1)
[2019-11-16] MEDS: VENTOLIN HFA INH SCH ×4 (03:23→20:08)
[2019-11-16] MEDS: SODIUM BICARBONATE 8.4% 150 MEQ in D5W 1,000 ML IV SCH ×2 (03:36→08:43)
[2019-11-16] MEDS: ZYLOPRIM PO SCH ×2 (08:42→20:21)
[2019-11-16] MEDS: MAXIPIME 2 GM/NS 2 GM/100 ML IVPB IV SCH (08:42)
[2019-11-16] MEDS: GRANIX SUBQ SCH (08:43)
[2019-11-16] MEDS: LOKELMA POWDER PACKET PO SCH ×3 (11:00→17:58)
[2019-11-16 11:09] LABS: BASO# 0.01 X1000 (0.0-0.2); BASO% 0.1 % (0.0-0.8); HEMATOCRIT 24.3 % (42.0-52.0); HEMOGLOBIN 7.8 g/dL (14.0-18.0); LYMPH# 13.38 X1000 (1.2-3.4); LYMPH% 89.7 % (20.5-51.1); MCH 27.4 PG (27-31); MCHC 32.1 g/dL (33-37); MCV 85.3 FL (81-99); MONO# 0.08 X1000 (0.11-0.59); MONO% 0.5 % (1.7-9.3); NEUT# 1.45 X1000 (1.4-6.5); NEUT% 9.7 % (42.2-75.2); PLT 59 X1000 (130-400); RBC 2.85 XMIL (4.7-6.1); RDW 17.8 % (11.5-14.5); WBC 14.92 X1000 (4.8-10.8)
[2019-11-16 11:40] LABS: PHOSPHORUS 5.9 mg/dL (2.7-4.5)
[2019-11-16 11:50] LABS: ALB/GLOB RATIO 0.8; ALBUMIN 2.8 g/dL (3.5-5.0); CALCIUM 8.1 mg/dL (8.8-10.2); CREATININE 4.7 mg/dL (0.7-1.2); POTASSIUM 5.2 mmol/L (3.5-5.1); TOTAL BILIRUBIN 6.14 mg/dL (0.20-1.00); TOTAL PROTEIN 6.4 g/dL (6.3-8.3)
--- NOTE | 2019-11-16 11:56 | NEPHROLOGY CONSULTATION ---
DATE: 11/16/2019 REASON FOR CONSULTATION: Acute kidney injury. HISTORY OF PRESENT ILLNESS: Mr. Powell is a 54-year-old man with a history of CLL and he states that he has been under treatment for years and has not had chemotherapy for while. These reports are of uncertain accuracy. He states he has lost 40 pounds in the last 2 weeks. He states he came and saw Dr. Foster on yesterday because of marked weakness, stating that he was able to ride a bicycle the day before and then he was not able to walk on the day of presentation. Laboratory data were collected and found abnormal kidney function and he was referred to the hospital. He has been treated with blood transfusion, 2 units, and he has been treated with IV fluid resuscitation using normal saline and also IV bicarbonate-containing fluids. He has not noticed any change in his urine output. He has not noticed a change in urinary color or character. He denies chills, fevers, sweats, night sweats, headaches, vision changes, sore throat, hoarseness, coughing, shortness of breath, chest discomfort, nausea, vomiting, diarrhea, abdominal pain, rashes, arthralgias etc. MEDICATIONS: He states he takes no medication at home. ALLERGIES: Denies. SOCIAL HISTORY: Denies alcohol or tobacco. FAMILY HISTORY: Otherwise negative. REVIEW OF SYSTEMS: Otherwise negative. PHYSICAL EXAMINATION: Vital Signs: Blood pressure 105/60, heart rate 84, respiration 18, afebrile. General: He is a middle-aged man, chronically ill, thin, but no acute distress. Skin: Warm and dry. No rashes. HEENT: Conjunctivae are pink, pupils are equal, jaundice. Oropharynx is clear, normal tongue, normal teeth, moist. Neck: Neck veins are 6 cm. Trachea is midline. Neck is supple. Heart: PMI is nondisplaced. Regular rate and rhythm. No murmurs, rubs, gallops. Lungs: Have equal breath sounds. No crackles or wheezes. No accessory muscle use or retraction. Abdomen: Distended, soft, nontender. He states it has not changed. No palpable organomegaly. No bruits, no masses. Bowel sounds present. Extremities: No edema, clubbing or cyanosis. Neurologic: Grossly nonfocal. IMPRESSION AND PLAN: Acute kidney injury. Modestly improved with IV fluids. Urine volume is not being measured. We will place a Morgan catheter to assist with this. He also has acute liver dysfunction and abdominal distention. Continue IV fluids. I agree with IV bicarbonate. We will perform a CT abdomen and also check urine electrolytes, etc. I have reviewed his medications and no changes are required at this time. We will follow with you. cc: MD Brendan Gibson MD
[2019-11-16 12:53] LABS: URINE SOURCE CATH
[2019-11-16 13:01] LABS: BILIRUBIN URINE NEGATIVE (NEGATIVE); BLOOD URINE SMALL (NEGATIVE); COLOR YELLOW; GLUCOSE URINE NEGATIVE (NEGATIVE); KETONE URINE NEGATIVE (NEGATIVE); LEUKOCYTES URINE NEGATIVE (NEGATIVE); NITRITE URINE NEGATIVE (NEGATIVE); PH URINE 5.5; PROTEIN URINE 30 mg/dL (NEGATIVE); SP GRAVITY URINE 1.013; TURBIDITY URINE CLEAR (CLEAR); UROBILINOGEN URINE 4 mg/dL (NORMAL)
[2019-11-16 13:03] LABS: UR EPITHELIAL CELLS <10 /HPF (<10); URINE BACTERIA NEGATIVE /HPF; URINE RBC <10 /HPF (<10); URINE WBC <10 /HPF (<10)
[2019-11-16 13:08] LABS: UR CREAT RANDOM 41.2 mg/dL (14-26); UR PROT RANDOM 35.3 mg/dL
--- NOTE | 2019-11-16 14:00 | Diag Imaging Result Doc PS360 ---
EXAM: CT ABDOMEN/PELVIS W/O CONTRAST 11/16/2019 HISTORY: decreased renal function, jaudice. TECHNIQUE: This exam was performed using automated exposure control, adjustment of mA or kV according to patient size, and/or use of iterative reconstruction technique. COMMENT: The current examination is compared with the previous study of 08/17/2019. There are patchy alveolar opacities in the right upper and middle lobes. There is some ill-defined and platelike opacity in the right lower lobe. The alveolar opacities were not present on the previous study. There was previously some atelectasis in both lung bases particularly the left lower lobe and there was previously a left pleural effusion which is no longer the case. There is very little fat. The spleen is enlarged measuring 14 cm in anterior posterior dimension. There is a massive retroperitoneal and mesenteric adenopathy. This occupies most of the volume of the abdominal and pelvic cavities. Both kidneys are enlarged the right measuring over 12.1 cm in length compared to 10.7 cm previously. The liver is also larger than it was measuring 21.2 cm in superior-inferior dimension compared to 19 cm previously. The gallbladder is distended. The inferior vena cava is not well defined. The possibility of thrombosis of the inferior vena cava and consequent Budd-Chiari syndrome as well as bilateral renal vein thrombosis cannot be excluded. There is some stool in the colon. The small bowel is not well demonstrated and apparently not distended. There was a similar appearance on the previous examination with regard to the massive adenopathy. There is apparent subcutaneous edema/anasarca. There is a Morgan catheter in the bladder. There is either retroperitoneal fat edema or free fluid in the pelvis. This is difficult to determine. A similar appearance was present on the previous study. There is bilateral inguinal adenopathy. There are surgical clips in the right inguinal region. This was not present at the time the previous study. There is no evidence of acute bony abnormality. IMPRESSION: 1. Massive retroperitoneal and mesenteric adenopathy. 2. Right upper and middle lobe pneumonia. 3. Splenomegaly. 4. Enlargement of the liver and both kidneys. The possibility of thrombosis of the inferior vena cava, renal veins and portal vein cannot be excluded and further evaluation with Doppler may be desirable. The findings were discussed with Tyshawn Batres MD at 11/16/2019 1:57 PM. Electronically signed by Talib Casanova 11/16/2019 1:57 PM
--- NOTE | 2019-11-16 14:10 | HEMO/ONC CONSULTATION ---
DATE: 11/16/2019 CONSULTATION REQUESTED BY: Hospitalist service. REASON FOR CONSULTATION: Patient with known history. HISTORY OF PRESENT ILLNESS: Mr. Powell is a 54-year-old male who is known to us as we are currently treating him for relapsed CLL. He was actually in our office on 11/15/2019 to receive lab work. He has most recently been treated with Venetoclax and Rituxan. His Venetoclax had been on hold due to cytopenia and he received 1 dose of Rituxan back on 10/29/2019. However, he did have infusion reaction with that dose and did not receive the full amount of Rituxan as scheduled. The patient was in our office yesterday to do blood work and reported that he was feeling increasingly weak. He was actually in a wheelchair, which is abnormal for the patient. He usually ambulates easily without assistance. He did have an elevated white count at that time of 24.4, he reported some coughing, so we sent him for chest x-ray. After he had left, his CMP resulted and he had a significantly elevated creatinine at 5.4, as well as a bilirubin 8.5, and elevated LFTs. He had elevated electrolytes as well. It appeared that he was in tumor lysis syndrome. We contacted the patient and had him admitted. He is now status post 1 dose of rasburicase and his uric acid level has dropped down to 2 from 12 previously. His lab values are also starting to slowly improve. He had some hyperkalemia yesterday that is now improving. Bilirubin is down to 6 and creatinine is slightly better at 5.2. He was found to have pneumonia on chest x-ray. He was also febrile upon presentation to the hospital, but was afebrile in our office. He is now in isolation. He is feeling better, but is just weak and tired. 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 He is status post FCR in 2017 and most recently has been on Venetoclax and Rituxan. Both treatments are currently on hold. PAST SURGICAL HISTORY: Status post left knee surgery secondary to patella fracture. SOCIAL HISTORY: Patient works [employer]. He is . Denies alcohol, illicit drug or tobacco use. FAMILY HISTORY: Positive for hypertension as well as CLL. Also positive for breast cancer. REVIEW OF SYSTEMS: As per the HPI. All else is either negative or noncontributory. PHYSICAL EXAMINATION: Vital Signs: Temperature is 98.7 degrees, heart rate 77, respirations 17, blood pressure 121/54, O2 saturation 98% on room air. General: This is an male lying in hospital bed in the isolation unit. He is in no acute distress. Head: Normocephalic, atraumatic. Eyes: Pupils equal, round, reactive Ears, nose, throat, neck, mouth: Mucosa appears to be normal. Cardiovascular: S1, S2 heard. Respiratory: Chest is essentially clear. Gastrointestinal: Abdomen is soft. Musculoskeletal: No bony abnormalities. Skin: No rash. Neurologic: The patient is alert and oriented. LABS AND STUDIES: White blood cells today are 14.92, hemoglobin 7.8, platelets 59,000. Sodium is 131, potassium is 4.2, chloride is 96, CO2 16, BUN is 118, creatinine is 4.7, glucose is 125, uric acid is down to 2.6, and was previously at 12.1, calcium is 8.1, phosphorus is 5.9, magnesium is 3.0, bilirubin is 6.14, AST and ALT are 88 and 326 respectively, alkaline phosphatase is 410. He has a CT of abdomen and pelvis which is currently pending. Chest x-ray shows right upper lobe pneumonia. ASSESSMENT AND PLAN: 1. Chronic lymphocytic leukemia, relapsed. Venetoclax and Rituxan both on hold currently. 2. Tumor lysis syndrome. Seems to be improving after dose of rasburicase. His uric acid level at least is down. Continue to monitor other lab values and continue hydration. 3. Acute renal failure secondary #2. Management per Dr. Batres. 4. Pneumonia. He also has had fever. He is currently in isolation and his Coronavirus Disease- 19 test is pending. Continue to treat with antibiotics. Follow up on results as they become available. We want thank you for consulting us on Mr. Powell. We will continue to follow along and adjust our treatment plan per his hospital course. Dictated by SYED Terry for Ana Foster MD cc: MD Brendan Sam MD I have seen and examined Mr. Powell and the above note reflects my history, physical exam, assessment and plan. Ana PERES
--- NOTE | 2019-11-16 15:49 | Diag Imaging Result Doc PS360 ---
EXAM: US ABDOMEN-COMPLETE 11/16/2019 HISTORY: TOYA TECHNIQUE: Abdominal ultrasound COMMENT: There is sludge in the gallbladder. Gallbladder wall is not thickened and there is no evidence of stones. There is no sonographic Carson sign. There is antegrade flow in the portal vein. The inferior vena cava is apparently patent. The common bile duct measures 5 mm in diameter. The kidneys are heterogeneously hyperechoic. There is pulsatile flow in the renal veins. The liver is hyperechoic. The spleen is enlarged measuring over 16 cm. There is antegrade flow in the portal vein. The right kidney measures 13 x 6.8 x 6.4 cm the left is 13.2 x 8.1 x 6.4 cm. The visualized portions of the head of the pancreas are within normal limits. IMPRESSION: 1. The inferior vena cava, renal veins, and portal vein appear to be patent. 2. Enlargement and hyper echogenicity of the kidneys. The possibility of pyelonephritis or other infiltrate process cannot be excluded. 3. Hyperechogenicity of the liver and enlargement of the spleen which may be indicative of liver disease and portal hypertension although there is antegrade flow in the portal vein. 4. Dilatation of the gallbladder with sludge. Electronically signed by Talib Casanova 11/16/2019 3:47 PM
[2019-11-16] MEDS: TYLENOL PO PRN (17:57)
--- NOTE | 2019-11-16 18:00 | PROGRESS NOTE ---
DATE: 11/16/2019 SUBJECTIVE: He looks better today. No major issues. OBJECTIVE: vital signs: Blood pressure 101/62, heart rate 99, respiratory rate 21, temperature is still 101.8. His COVID which has already been analyzed is negative. Cardiovascular: Regular rate and rhythm. Pulmonary: Bilateral breath sounds. Clear to auscultation. Gastrointestinal: Soft, nontender, nondistended. Bowel sounds were positive. LABORATORY DATA: White count 14, hemoglobin and hematocrit 7 and 24, platelets 59,000. Potassium 5.2. BUN and creatinine still 118 and 4.7. Uric acid has gone from 12 to 2.6. T bilirubin is still high at 6. Urine sodium is still high. His COVID test though was negative already. But CT scan showed a lot of lymphadenopathy with concern over thrombosis of the IVC, but the ultrasound is negative. So I do not think that is the case and we are not going to anticoagulate him. But it may be that he has pyelonephritis. PROBLEMS: 1. Pyelonephritis with sepsis. We will continue broad-spectrum antibiotics. He has got renal failure, so we are going to have to adjust his cefepime. I do not think he can get the current dose. 2. Continue fluids. He has got a severe metabolic acidosis anion gap, so he is on a bicarbonate drip. We will continue that for the time being. 3. Hyperkalemia. We will continue Lokelma and follow. 4. Elevated liver enzymes. I am not sure if this is related to direct cancer effect with lymphadenopathy. There is no kind of portal vein thrombosis. 5. 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 He got a dose of rasburicase per Dr. Foster. Uric acid level has come down. Clinically, he does not look terrible, but he is still fairly ill from all these processes. 6. Pancytopenia related to chemotherapy. He is anemic and his hemoglobin and hematocrit have come up. Platelets are going to come down. We are going to continue to monitor those. Dr. Foster is involved. He is not on Neupogen currently. 7. Acute kidney injury. We will continue IV fluids and bicarbonate and monitor his electrolytes. Dr. Batres is involved. cc: Brendan Perera MD
[2019-11-16] MEDS: PROTONIX IV SCH (20:21)
[2019-11-16] MEDS: SODIUM CHLORIDE 0.9% INJ SCH (20:21)
[2019-11-16] MEDS ORDERED: NS IV ONE (21:00)
[2019-11-16] MEDS ORDERED: ELITEK IV ONE (21:00)
[2019-11-17] MEDS: MAXIPIME 1 GM in NS 50 ML IV SCH ×2 (02:39→16:42)
[2019-11-17] MEDS: VENTOLIN HFA INH SCH ×5 (03:33→21:00)
[2019-11-17] MEDS: SODIUM BICARBONATE 8.4% 150 MEQ in D5W 1,000 ML IV SCH ×2 (06:39)
[2019-11-17 07:24] LABS: HEMATOCRIT 23.4 % (42.0-52.0); HEMOGLOBIN 7.5 g/dL (14.0-18.0); MCH 27.7 PG (27-31); MCHC 32.1 g/dL (33-37); MCV 86.3 FL (81-99); PLT 40 X1000 (130-400); RBC 2.71 XMIL (4.7-6.1); RDW 17.8 % (11.5-14.5); WBC 11.27 X1000 (4.8-10.8)
--- NOTE | 2019-11-17 07:31 | Diag Imaging Result Doc PS360 ---
EXAM: CHEST-PORTABLE HISTORY: pneumonia TECHNIQUE: Single view COMPARISON: 11/15/2019 FINDINGS: Poor inspiratory effort. There are dense right-sided infiltrates. There are many small infiltrates in the left base. Heart is mildly prominent. No pleural effusions identified. IMPRESSION: Worsening right-sided pneumonia Electronically signed by Jose Bradley 11/17/2019 7:29 AM
[2019-11-17 07:51] LABS: ALBUMIN 2.5 g/dL (3.5-5.0); CALCIUM 7.5 mg/dL (8.8-10.2); CREATININE 3.9 mg/dL (0.7-1.2); PHOSPHORUS 4.6 mg/dL (2.7-4.5); POTASSIUM 4.5 mmol/L (3.5-5.1)
[2019-11-17 09:59] LABS: HEPATITIS PROFILE ACUTE SEE COMMENTS
[2019-11-17] MEDS: ZYLOPRIM PO SCH (10:07)
[2019-11-17] MEDS: LOKELMA POWDER PACKET PO SCH (10:24)
[2019-11-17] MEDS: GRANIX SUBQ SCH (11:14)
--- NOTE | 2019-11-17 11:45 | NEPHROLOGY PROGRESS NOTE ---
DATE: 11/17/2019 SUBJECTIVE: He states he feels much better today. More energy. Still lying in bed. No nausea or vomiting. He states he has been able to eat some. OBJECTIVE: Vital Signs: Blood pressure 102/68, heart rate 95, respiration 18, temperature 99.7 degrees. Intake 4.4 L. Output 3.8 L. General: No acute distress. Skin: Warm and dry. HEENT: Conjunctivae remain jaundiced. Neck: Neck veins are not distended. Trachea is midline. Heart: Regular. No gallops. Lungs: Equal. No crackles. Abdomen: Distended, soft, nontender. Bowel sounds are present. Extremities: No edema, clubbing or cyanosis. IMPRESSION: 1. Acute kidney injury. Good urine output. BUN and creatinine are falling appropriately. Continue IV fluids. 2. Electrolytes/acid base. Anion gap is now 16 with a serum bicarbonate of 23. I will change his IV fluids to lactated Ringer's at the same rate. 3. Abnormal CT and ultrasound. No venous thrombosis as was suggested by the CT. Kidneys are enlarged suggesting possible infiltrative process. As such, it is possible his renal function may not entirely normalize. cc: Tyshawn Batres MD
[2019-11-17] MEDS: LR 1,000 ML IV SCH ×2 (12:11→22:08)
[2019-11-17] MEDS: DULCOLAX PR SCH ×2 (12:17→21:06)
[2019-11-17] MEDS: MIRALAX PO SCH ×2 (12:17→21:05)
[2019-11-17] MEDS: TYLENOL PO PRN (12:20)
--- NOTE | 2019-11-17 12:35 | SEPSIS: TISSUE PERFUSION ASSMT ---
Sepsis: Tissue Perfusion Assmt - Physical Exam Assessment Date: 11/17/19 Time Assessment Initialized: 12:15 Vital Signs: Last Vital Signs Temp 99.7 F H 11/17/19 08:00 Pulse 95 H 11/17/19 08:00 Resp 18 11/17/19 08:00 BP 102/68 11/17/19 08:00 Pulse Ox 97 11/17/19 08:00 Height 5 ft 5 in Weight 50.893 kg Lung Sounds: crackles Heart Sounds: Regular Capillary Refill Time: Less Than 2 Seconds Peripheral Pulse Evaluation: radial (R): 2+, radial (L): 2+, dorsalis-pedis (R): 2+, dorsalis-pedis (L): 2+, posterior tibialis (R): 2+, posterior tibialis (L): 2+ Skin Exam: pink - Alternative Fluid Bolus Bolus Option: Alternative Fluid Resuscitation Bolus for morbidly obese patients with a BMI >30, Refer to [facility] Body Weight Chart for Reference. Is patient's BMI >30?: No - Plan Comment: 11/17/19 12:34 Patient has been on continuous IV fluids. so, bolus has not been ordered.
--- NOTE | 2019-11-17 12:59 | PROGRESS NOTE ---
DATE: 11/17/2019 INTERVAL HISTORY: No acute events overnight. He continues to have a low-grade fever, though his tachycardia has improved. His leukocytosis and anemia have been improving. He continues to have poor oral intake. SUBJECTIVE: Mr. Andre Jr., denies any chest pain or shortness of breath. He has occasional cough. He denies nausea, vomiting, abdominal pain. He denies burning with micturition, diarrhea or constipation. He has not had any bowel movement. REVIEW OF SYSTEMS: Negative for headache. Negative for blurriness of vision. Negative for joint pain. VITALS: Temperature 99.7 degrees, pulse respiratory 18, blood pressure 102/68. He is saturating 97% on room air. PHYSICAL EXAMINATION: Not in any acute distress. He has mild conjunctival pallor and marked icterus. No cyanosis, clubbing. Air entry decreased on right supramammary region with inspiratory crackles. Adequate air entry on left hemithorax. S1, S2 normal. No murmur or gallop. Abdomen is distended, soft, nontender. Active bowel sounds. Tympanic to percussion. He does not have any lower extremity edema. He is alert and oriented x3, though he does have slow responses. LABS: Suggestive of WBC of 11.2, hemoglobin 7.5, platelet 40,000/ he has improvement in BUN to 96, creatinine 3.9. His calcium is 7.5, albumin is 2.5. Blood culture data, no growth to date. Influenza screen was negative. IMAGING: Chest x-ray this morning suggests worsening right-sided pneumonia. ASSESSMENT AND PLAN: 1. Sepsis due to multifocal right lung pneumonia due to his immunocompromised status. Continue intravenous fluids, intravenous vancomycin and intravenous cefepime with a close eye on renal profile. Though his chest x-ray suggests worsening infiltrate, he does not appear to be in any shortness of breath. 2. 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 His uric acid remarkably decreased after intravenous fluid resuscitation and a dose of Rasburicase. He denies any joint pain at the moment. I will decrease his allopurinol dose adjusted for kidney function. 3. Acute kidney injury due to acute tubular necrosis related to tumor lysis syndrome, now improving. He is status post intravenous bicarbonate drip. Continue intravenous lactated Ringer's as per Nephrology's recommendations. His hyponatremia, hypochloremia, hyperkalemia have resolved and he has adequate urine output. Renal ultrasound had increased echogenicity of kidneys, though there was no pyuria to suggest acute pyelonephritis. 4. Transaminitis, hyperbilirubinemia, and hepatomegaly. Ultrasound of the abdomen did not have any thrombosis of portal vein, though it could not evaluate hepatic veins. I will continue to monitor liver function test and intravenous fluid resuscitation. In the future I may consider further imaging if his liver function tests do not return towards becoming normal. He does not have any abdominal tenderness at the moment. 5. Anemia and thrombocytopenia, status post 2 units of packed red blood cell transfusion. This is in the setting of his chronic lymphoid leukemia, its treatment. I will continue to monitor his complete blood count. I will start him on intravenous pantoprazole for stress ulcer prophylaxis considering his multiple comorbidities and thrombocytopenia. 6. Chronic lymphocytic leukemia on rituximab and Venetoclax. Hematology/Oncology team on board. His treatment has been on hold at the moment. I will stop his filgrastim considering he does not have neutropenia anymore. 7. Further. DISPOSITION: Continue to monitor the patient inside the hospital. I discussed with him about his pneumonia, leukemia, kidney failure. I allowed him to ask questions. All of his questions have been answered. I will start him on bowel regimen for his constipation. 35 minutes of time was spent taking care of this patient. cc: Rufino Santiago MD MTDAnaly
[2019-11-18] MEDS: VENTOLIN HFA INH SCH ×4 (03:10→20:12)
[2019-11-18] MEDS: MAXIPIME 1 GM in NS 50 ML IV SCH ×2 (03:31→16:35)
[2019-11-18] MEDS: LR 1,000 ML IV SCH ×2 (06:31→13:46)
[2019-11-18] MEDS: PROTONIX IV SCH (06:31)
[2019-11-18 07:24] LABS: HEMATOCRIT 24.3 % (42.0-52.0); HEMOGLOBIN 7.5 g/dL (14.0-18.0); MCH 27.8 PG (27-31); MCHC 30.9 g/dL (33-37); PLT 47 X1000 (130-400); RDW 17.6 % (11.5-14.5); WBC 9.58 X1000 (4.8-10.8)
[2019-11-18 07:33] LABS: INR 1.33; PROTIME 16.7 Seconds (11.0-16.0)
[2019-11-18 07:45] LABS: ALBUMIN 2.6 g/dL (3.5-5.0); DIRECT BILIRUBIN 1.5 mg/dL (0.00-0.20); TOTAL BILIRUBIN 2.39 mg/dL (0.20-1.00); TOTAL PROTEIN 5.1 g/dL (6.3-8.3)
[2019-11-18 07:46] LABS: ALBUMIN 2.5 g/dL (3.5-5.0); CALCIUM 7.5 mg/dL (8.8-10.2); CREATININE 3.6 mg/dL (0.7-1.2); PHOSPHORUS 4.1 mg/dL (2.7-4.5); POTASSIUM 4.7 mmol/L (3.5-5.1)
[2019-11-18] MEDS: MIRALAX PO SCH ×2 (09:01→20:56)
[2019-11-18] MEDS: DULCOLAX PR SCH ×2 (09:01→20:57)
[2019-11-18] MEDS: ZYLOPRIM PO SCH (09:01)
[2019-11-18] MEDS: TYLENOL PO PRN (09:01)
[2019-11-18] MEDS ORDERED: VANCOMYCIN 1 GM/NS 1 GM/250 ML IVPB IV SCH (12:00)
--- NOTE | 2019-11-18 12:37 | PROGRESS NOTE ---
DATE: 11/18/2019 INTERVAL HISTORY: Mr. Powell continues to have intermittent fever with temperature of 100.3 degrees. He was mildly tachycardic. He continues to have poor appetite. His blood pressure has been normal. His leukocytosis has resolved. SUBJECTIVE: Mr. Powell is feeling better. He denies any chest pain. He is not feeling short of breath. He has occasional cough but not expectoration. REVIEW OF SYSTEMS: Positive for poor appetite. Negative for nausea, vomiting, diarrhea. OBJECTIVE: Vital Signs: Temperature 100.3 degrees, pulse 103, respiratory rate 28, blood pressure 95/55, saturating 95% on room air. General: He is not in any acute distress. HEENT: Oral cavity is moist. Lungs: He has diminished air entry with inspiratory crackles on right hemithorax. No crackles on the left hemifield. No wheeze or rhonchi. Cardiovascular: S1, S2 normal. Tachycardic. No murmur or gallop. Abdomen: Distended, soft, nontender. Active bowel sounds. Tympanic to percussion. He has Morgan catheter. Neurologic: He is alert and oriented x3. He has mild conjunctival pallor. His icterus has diminished. No cyanosis or clubbing. LABORATORY DATA: Suggestive of WBC of 9.5, hemoglobin 7.5, platelets 47,000. INR 1.3. BUN 87, creatinine 3.6. His total bilirubin is 2.3. His ALT is 141. Random vancomycin level was 6.8. His previous coronavirus and hepatitis panels were undetectable. No positive microbiological data. No new imaging. ASSESSMENT AND PLAN: 1. Sepsis due to multifocal right lung pneumonia due to his immunocompromised state. Continue intravenous fluids, intravenous vancomycin and intravenous cefepime and follow up basic metabolic panel. He is not in any respiratory distress and breathing well on room air. I will repeat chest x-ray based on his course. Continue albuterol inhaler. 2. Tumor lysis syndrome leading to multiple metabolic derangements, now improving. His uric acid significantly decreased after intravenous fluids and a dose of rasburicase. He does not have any joint pain. Continue allopurinol for prophylaxis at a reduced, renally adjusted dose. 3. Acute kidney injury due to acute tubular necrosis related to tumor lysis syndrome, now improving. He is status post intravenous bicarbonate drip, and I will continue intravenous lactated Ringer as per Nephrology's recommendation. His hyponatremia, hypochloremia, hyperkalemia have resolved, and he has adequate urine output. Renal ultrasound though had increased echogenicity. He did not have pyuria to suggest acute pyelonephritis. 4. Transaminitis, hyperbilirubinemia, and hepatomegaly without ultrasound evidence of thrombosis. This could be in the setting of his sepsis on presentation as well as tumor lysis syndrome, now improving after intravenous fluid resuscitation. Hepatitis panel was normal. He does not have abdominal tenderness. 5. Anemia and thrombocytopenia, status post 2 units of packed red blood cells in the setting of chronic lymphoid leukemia and treatment. Continue to monitor blood count. Continue pantoprazole for stress ulcer prophylaxis. 6. Chronic lymphocytic leukemia on rituximab venetoclax. Hematology/Oncology has been on board. His treatment has been on hold next. DISPOSITION: I will continue to monitor patient inside the hospital as he still needs intravenous antibiotics, and he continues to have fever spike. I would allow at least 24 to 48 hours of fever free period before considering discharge. Plan of care discussed with Mr. Powell. His questions have been answered. Time spent: 35 minutes cc: Rufino Santiago MD MTDD
[2019-11-19] MEDS: LR 1,000 ML IV SCH ×4 (00:17→20:14)
--- NOTE | 2019-11-19 02:40 | EKG Report ---
Test Performed on : 11/18/2019 8:43:07 PM Test Reason : pos PVCs/trigeminy Blood Pressure : / mmHG Vent. Rate : 092 BPM Atrial Rate : 092 BPM P-R Int : 118 ms QRS Dur : 088 ms QT Int : 372 ms P-R-T Axes : 061 016 053 degrees QTc Int : 460 ms Normal sinus rhythm. Normal ECG When compared with ECG of 15-NOV-2019 19:47, No significant change was found Confirmed by Katy PURVIS, Glen Hoang ([id number]) on 11/19/2019 9:25:50 AM
[2019-11-19] MEDS: MAXIPIME 1 GM in NS 50 ML IV SCH ×2 (03:47→14:35)
[2019-11-19] MEDS: VENTOLIN HFA INH SCH ×4 (03:54→20:05)
[2019-11-19] MEDS: SODIUM CHLORIDE 0.9% INJ SCH (06:09)
[2019-11-19] MEDS: PROTONIX IV SCH (06:09)
[2019-11-19 07:43] LABS: HEMOGLOBIN 8.1 g/dL (14.0-18.0); MCH 27.7 PG (27-31); MCV 92.5 FL (81-99); PLT 57 X1000 (130-400); RBC 2.92 XMIL (4.7-6.1); RDW 17.5 % (11.5-14.5); WBC 12.52 X1000 (4.8-10.8)
[2019-11-19 07:55] LABS: ALBUMIN 2.4 g/dL (3.5-5.0); CALCIUM 7.9 mg/dL (8.8-10.2); CREATININE 2.8 mg/dL (0.7-1.2); PHOSPHORUS 4.2 mg/dL (2.7-4.5); POTASSIUM 5.2 mmol/L (3.5-5.1)
--- NOTE | 2019-11-19 09:47 | NEPHROLOGY PROGRESS NOTE ---
DATE: 11/19/2019 SUBJECTIVE: He is doing much better. He is awake, alert, conversant, asking about my football team. No shortness of breath, nausea or vomiting. OBJECTIVE: Vital Signs: Blood pressure 104/68, heart rate 86, respirations 16, afebrile. General: No acute distress. ENT: No jaundice. Skin: Warm and dry. Neck: Neck veins are not distended. Heart: Regular. No gallops. Lungs: Equal. No crackles. Abdomen: Soft. Still mildly distended. Normal bowel sounds. Extremities: No edema, clubbing or cyanosis. IMPRESSION: Acute kidney injury. Progressively improving. Electrolytes, acid base, volume status all acceptable. If he is otherwise ready for discharge, then we would certainly support his being discharged and we can follow him as an outpatient until his renal function normalizes. cc: Tyshawn Batres MD
[2019-11-19] MEDS: MIRALAX PO SCH ×2 (09:55→20:18)
[2019-11-19] MEDS: ZYLOPRIM PO SCH (09:55)
[2019-11-19] MEDS: DULCOLAX PR SCH ×2 (09:56→20:15)
--- NOTE | 2019-11-19 13:23 | HEMO/ONC PROGRESS NOTE ---
DATE: 11/19/2019 CHIEF COMPLAINT: Eating better. HISTORY OF PRESENT ILLNESS: Mr. Powell has been noted to have significant improvement in his urine output, his renal function, as well as his appetite and energy over the weekend. He has been seen by Nephrology. He has not required any dialysis or treatment for his elevated potassium that I am aware of over the last few days. He has noted significant improvement in his energy. REVIEW OF SYSTEMS: Complete review of systems is negative, except as per HPI. PHYSICAL EXAMINATION: Vital Signs: Temperature 98.5 degrees, pulse 86, respiratory rate 16, blood pressure 104/68, O2 saturation 98% on room air. General: This is a well-developed, well- nourished, man in no acute distress. Eyes: Sclerae anicteric. Cardiovascular: Regular rate and rhythm. Normal S1, S2. No murmurs, rubs, or gallops. Pulmonary: Lungs are clear to auscultation bilaterally without wheezes, rales, or rhonchi. GI: Abdomen is soft, nontender, nondistended with normoactive bowel sounds. The rest of the examination is unremarkable. LABORATORY DATA: White count 12.52, hemoglobin 8.1, platelet count 57,000. Creatinine 2.8, potassium 5.2. ASSESSMENT AND PLAN: 1. Chronic lymphocytic leukemia: He is status post cycle 1 of Rituxan, and has been off of his Venetoclax. We will have him continue to hold Venetoclax until his renal function stabilizes. We will see him back in the office at the end of the week for repeat lab check. He will call the clinic sooner if he has questions or concerns. 2. Renal failure: Continue allopurinol. Hold Venetoclax. Reassess as outpatient. The importance of adequate hydration was discussed with the patient. His urine output is significantly improved. 3. Hyperkalemia: Related to renal dysfunction. Potassium is stable at 5.2. Continue to monitor. 4. Elevated liver function tests: Liver function tests have significantly improved with an AST of 141 and ALT of 325, with a total bilirubin of 2.39 yesterday. We will recheck those as an outpatient. 5. Pneumonia: He is on appropriate antibiotics, which can be transitioned to oral. His Coronavirus Disease 2019 testing was negative. He is afebrile at this time. Complete a course of outpatient antibiotics, and follow up for resolution of symptoms. cc: Ana Foster MD
--- NOTE | 2019-11-19 16:01 | PROGRESS NOTE ---
DATE: 11/19/2019 SUBJECTIVE: He is feeling a little bit better. Seems to be doing okay. OBJECTIVE: Vital Signs: Blood pressure is 99/64, heart rate of 95, respiratory rate 17, temperature 98.6 degrees, 96% on room air. Cardiovascular: Regular rate and rhythm. Pulmonary: Bilateral breath sounds clear to auscultation. Gastrointestinal: Soft, nontender, nondistended. Bowel sounds are positive. LABORATORY DATA: White count is 12, hemoglobin and hematocrit 8 and 27, platelets 57,000. Creatinine is down to 2.8, he came in with profound kidney failure and a little bit of hyperkalemia today. PROBLEM LIST: 1. Sepsis with right lung pneumonia. He is on vancomycin and cefepime and seems to be doing better. He got a chest x-ray which looked worse. Probably get another chest x-ray tomorrow, kind of see where we are at, but overall that seems to be doing better. He is afebrile. He had a little temperature yesterday morning but his fevers have come down significantly. I do believe he ruled out for coronavirus disease 2018. 2. Tumor lysis syndrome. He seems to be doing okay. He is status post rasburicase. We are following closely. 3. Acute kidney injury due to possible tumor lysis syndrome. Nephrology is following. He is improving. 4. Transaminitis. He seems to be doing better from that standpoint. I think those levels are trending downward, because his bilirubin was up to 7 and is down to 2.3. Repeat his levels tomorrow. 5. Hyperkalemia. I will probably start a little bit of Lokelma if it has not been already started. DISPOSITION: Pending his clinical status, hopefully be home soon, but we will continue to monitor and see how he does. It still maybe a day or two away. cc: Brendan Perera MD
[2019-11-19] MEDS: LOKELMA POWDER PACKET PO SCH (16:44)
[2019-11-19] MEDS: TYLENOL PO PRN (23:33)
[2019-11-20] MEDS: MAXIPIME 1 GM in NS 50 ML IV SCH ×2 (02:07→18:44)
[2019-11-20] MEDS: VENTOLIN HFA INH SCH ×4 (04:03→21:16)
[2019-11-20] MEDS: LR 1,000 ML IV SCH ×3 (04:36→14:16)
[2019-11-20] MEDS: PROTONIX IV SCH (06:02)
[2019-11-20 07:48] LABS: HEMATOCRIT 21.8 % (42.0-52.0); HEMOGLOBIN 6.3 g/dL (14.0-18.0); MCHC 28.9 g/dL (33-37); MCV 93.6 FL (81-99); PLT 54 X1000 (130-400); RBC 2.33 XMIL (4.7-6.1); RDW 17.1 % (11.5-14.5); WBC 6.07 X1000 (4.8-10.8)
[2019-11-20 08:00] LABS: ALBUMIN 2.4 g/dL (3.5-5.0); CALCIUM 7.6 mg/dL (8.8-10.2); CREATININE 2.4 mg/dL (0.7-1.2); PHOSPHORUS 3.7 mg/dL (2.7-4.5); POTASSIUM 4.4 mmol/L (3.5-5.1)
[2019-11-20 08:21] LABS: ALB/GLOB RATIO 1.3; ALBUMIN 2.6 g/dL (3.5-5.0); DIRECT BILIRUBIN 1.1 mg/dL (0.00-0.20); TOTAL BILIRUBIN 1.79 mg/dL (0.20-1.00); TOTAL PROTEIN 4.6 g/dL (6.3-8.3)
--- NOTE | 2019-11-20 09:07 | Diag Imaging Result Doc PS360 ---
EXAM: CHEST-2 VIEWS - 11/20/2019 HISTORY: hypoxia TECHNIQUE: Chest two views COMPARISON: 11/17/2019 portable chest FINDINGS: Inspiration is mildly shallow. There is infiltrate on the right which appears to be located primarily in the upper and middle lobes. The infiltrate is similar in extent but overall less dense in the upper lobe compared to prior, but appears to have increased in the middle lobe. The left lung appears clear. There is no pleural effusion or pneumothorax identified. Heart size is normal. IMPRESSION: Right upper lobe and right middle lobe infiltrate. Compared to prior, the infiltrate appears less dense in the upper lobe, but increased in the middle lobe. Electronically signed by ClariFI 11/20/2019 9:05 AM
[2019-11-20] MEDS: DULCOLAX PR SCH ×2 (09:57→20:50)
[2019-11-20] MEDS: ZYLOPRIM PO SCH (09:59)
[2019-11-20] MEDS: MIRALAX PO SCH ×2 (09:59→20:49)
[2019-11-20] MEDS: LOKELMA POWDER PACKET PO SCH (09:59)
[2019-11-20] MEDS ORDERED: NS 500 ML IV ONE (11:02)
--- NOTE | 2019-11-20 11:49 | NEPHROLOGY PROGRESS NOTE ---
DATE: 11/20/2019 SUBJECTIVE: He states he is feeling well. He is hoping for discharge. OBJECTIVE: Vital Signs: Blood pressure 94/65, heart rate 104, respirations 14, afebrile. Intake 1.7 L, output 1.7 L. General: No acute distress. Skin: Warm and dry. Neck: Neck veins are not distended. Heart: Regular. Lungs: Equal. No crackles. Abdomen: Soft, mildly distended, nontender. Bowel sounds are present. Extremities: No edema, clubbing or cyanosis. IMPRESSION: Acute kidney injury. Presumably, acute tubular necrosis and intravascular volume depletion resolving. If he is discharged, we will follow him up in 2 weeks in order to monitor his renal function until normalized. cc: Tyshawn Batres MD
--- NOTE | 2019-11-20 14:14 | PROGRESS NOTE ---
DATE: 11/20/2019 SUBJECTIVE: Patient has no major complaints. OBJECTIVE: Blood pressure 108/72, heart rate of 97, respiratory rate 18, temperature 98.3 degrees. Cardiovascular: Regular rate and rhythm. Pulmonary: Bilateral breath sounds clear to auscultation. GI: Soft, nontender, nondistended. Bowel sounds were positive. White count 6, hemoglobin and hematocrit have dropped to 6 and 21, platelets of 54,000. Creatinine of 2.4. T bilirubin down to 1.79 from 6 three days ago, so distinctive improvement. Chest x-ray shows right upper and middle lobe infiltrate with some improvement in both. PROBLEM LIST: 1. Sepsis, right middle and upper lobe pneumonia. He is on vancomycin and cefepime. He has ruled out for Covid. I think all his numbers have improved. His cefepime has been 3 days, vancomycin has been also for 3 days. 2. Acute kidney injury. His numbers look better. I am going to leave him on his fluids. I may decrease them a bit. 3. Anemia, possibly due to chemotherapy, has dropped. We will give him an additional unit of blood and see how he does, although this may be dilutional. 4. Disposition, pending clinical status but again I anticipate discharge tomorrow if he is stable. cc: Brendan Perera MD
[2019-11-20] MEDS ORDERED: VANCOMYCIN 1 GM/NS 1 GM/250 ML IVPB IV SCH ×2 (16:00→18:00)
[2019-11-21] MEDS ORDERED: VANCOMYCIN 1 GM/NS 1 GM/250 ML IVPB IV SCH (02:00)
[2019-11-21] MEDS: LR 1,000 ML IV SCH ×2 (03:12→18:18)
[2019-11-21] MEDS: MAXIPIME 1 GM in NS 50 ML IV SCH ×2 (03:12→16:08)
[2019-11-21] MEDS: VENTOLIN HFA INH SCH ×4 (04:04→20:35)
[2019-11-21] MEDS: PROTONIX IV SCH (05:18)
[2019-11-21 07:28] LABS: ALBUMIN 2.2 g/dL (3.5-5.0); CALCIUM 7.5 mg/dL (8.8-10.2); CREATININE 2.2 mg/dL (0.7-1.2); PHOSPHORUS 3.1 mg/dL (2.7-4.5); POTASSIUM 4.5 mmol/L (3.5-5.1)
[2019-11-21 07:30] LABS: HEMATOCRIT 22.9 % (42.0-52.0); HEMOGLOBIN 6.7 g/dL (14.0-18.0); MCH 27.3 PG (27-31); MCHC 29.3 g/dL (33-37); MCV 93.5 FL (81-99); PLT 49 X1000 (130-400); RBC 2.45 XMIL (4.7-6.1); RDW 16.5 % (11.5-14.5); WBC 6.64 X1000 (4.8-10.8)
[2019-11-21] MEDS: DULCOLAX PR SCH ×2 (10:00→20:31)
[2019-11-21] MEDS: ZYLOPRIM PO SCH (10:01)
[2019-11-21] MEDS: LOKELMA POWDER PACKET PO SCH (10:01)
[2019-11-21] MEDS: MIRALAX PO SCH ×2 (10:01→20:41)
[2019-11-21] MEDS ORDERED: NS 500 ML IV ONE (12:05)
--- NOTE | 2019-11-21 12:25 | HEMO/ONC PROGRESS NOTE ---
DATE: 11/20/2019 SUBJECTIVE: Mr. Powell is lying in his hospital bed. He is in no acute distress. He reports to me that he is feeling well at this time. OBJECTIVE: Vital Signs: Temperature would be 98.3, heart rate 97, respirations 18, blood pressure 108/72, and O2 saturations 99% on room air. Cardiovascular: On physical exam, regular rate. Respiratory: Normal respiratory effort. Gastrointestinal: The abdomen is slightly distended. Soft. Extremities: He has no edema noted. Neurologic: The patient is alert and oriented with no obvious focal motor deficits noted. LABORATORY DATA: White blood cells 6.07, hemoglobin 6.3, platelet count 54,000. Sodium 139, potassium 4.4, chloride 102, CO2 of 25, BUN 63, creatinine 2.4, glucose 90, total bilirubin 1.79. AST and ALT are 43 and 89 respectively, alkaline phosphatase 266. ASSESSMENT AND PLAN: 1. Chronic lymphocytic leukemia. He is status post 1 cycle of Rituxan. We have also given him venetoclax, but most recently the venetoclax has been on hold. We will continue to hold his venetoclax while in the hospital. The plan will be to see him once he is discharged in our office and then discuss further treatment planning at that time. 2. Renal failure. Continue allopurinol. Holding venetoclax as per above. Improved since initial admission. This was secondary to tumor lysis syndrome. 3. Hyperkalemia. Related to his renal function. This again has improved since his renal function is also improving. 4. Elevated liver function tests. These continue to improve as well. 5. Pneumonia. The patient continues on his current antibiotics. Seems to be doing well. He was ruled out for Coronavirus Disease 2019 which came back as negative. He will need to complete all of his antibiotics. We will follow up with him as an outpatient. 6. Anemia. The patient's hemoglobin did drop. He did receive a unit of packed red blood cells at this time. We will reassess tomorrow. 7. Disposition. Hopefully, the patient will be able to go home in the next couple of days. We will follow him closely as an outpatient. Dictated by SYED Terry for Ana Foster MD cc: Ana Foster MD
--- NOTE | 2019-11-21 13:35 | NEPHROLOGY PROGRESS NOTE ---
DATE: 11/21/2019 SUBJECTIVE: He was hoping to be discharged yesterday. He has no new complaints. He states he has been ambulatory. No shortness of breath. No weakness, dizziness, etc. OBJECTIVE: Vital Signs: Blood pressure 97/66, heart rate 88, respirations 18, afebrile. General: No acute distress. Skin: Warm and dry. Neck: Neck veins are not distended. Heart: Regular with a gallop. Lungs: Equal. No crackles or wheezes. Abdomen: Benign. Extremities: No edema, clubbing, or cyanosis. IMPRESSION: Acute kidney injury. Ischemic acute tubular necrosis with intravascular volume depletion. Labs are progressively improving. If he is discharged, we can follow him as an outpatient. No changes otherwise. cc: Tyshawn Batres MD
[2019-11-21] MEDS: NS 500 ML IV ONE (15:16)
--- NOTE | 2019-11-21 17:48 | PROGRESS NOTE ---
DATE: 11/21/2019 SUBJECTIVE: Patient has no major complaints. OBJECTIVE: Blood pressure is 111/72, heart rate of 65, respiratory rate of 18, temperature 97.9 degrees, 100% on room air.Cardiovascular: Regular rate and rhythm. Pulmonary: Bilateral breath sounds clear to auscultation. GI: Soft, nontender, nondistended. Bowel sounds were positive. LABORATORY DATA: White count 6.6, hemoglobin only 6 and hematocrit is 22, barely a raise from yesterday's transfusion. White count down to 49,000. BUN and creatinine 54 and 2.2. PROBLEM LIST: 1. Symptomatic anemia. We will give him another unit of blood today because he is right at below baseline and we will continue to follow. I think both Heme-Onc and I have ordered blood on this patient, but 1 more unit today. 2. Acute on chronic kidney injury. His baseline level is around stage IIIB. We will continue to monitor. Nephrology is following. He is getting fluids, so we will continue fluids and see how he does. 3. Disposition pending clinical status. I anticipate discharge soon. We are really kind of waiting on stabilization in his H H levels. 4. Right middle and upper lobe pneumonia. He is on vancomycin and cefepime. These will be day 4. I anticipate discharge on Omnicef. We will follow. 5. Chronic lymphocytic leukemia status post Rituxan and he has been on Venetoclax which is now on hold. Hematology/Oncology is following. DISPOSITION: Pending clinical status. cc: Brendan Perera MD
[2019-11-21] MEDS: TYLENOL PO PRN (20:35)
[2019-11-22] MEDS: MAXIPIME 1 GM in NS 50 ML IV SCH (02:00)
[2019-11-22] MEDS: VENTOLIN HFA INH SCH ×3 (03:35→15:04)
[2019-11-22] MEDS: LR 1,000 ML IV SCH (05:00)
[2019-11-22] MEDS: PROTONIX IV SCH (05:38)
[2019-11-22 08:09] LABS: CALCIUM 7.8 mg/dL (8.8-10.2); POTASSIUM 4.2 mmol/L (3.5-5.1)
[2019-11-22 08:26] LABS: EOS# 0.01 X1000 (0.0-0.7); EOS% 0.1 % (0.0-10.0); HEMATOCRIT 26.2 % (42.0-52.0); LYMPH# 7.13 X1000 (1.2-3.4); LYMPH% 93.2 % (20.5-51.1); MCH 28.7 PG (27-31); MCHC 30.5 g/dL (33-37); MCV 93.9 FL (81-99); MONO# 0.06 X1000 (0.11-0.59); MONO% 0.8 % (1.7-9.3); NEUT# 0.45 X1000 (1.4-6.5); NEUT% 5.9 % (42.2-75.2); PLT 31 X1000 (130-400); RBC 2.79 XMIL (4.7-6.1); WBC 7.65 X1000 (4.8-10.8)
[2019-11-22] MEDS: DULCOLAX PR SCH (08:28)
[2019-11-22] MEDS: MIRALAX PO SCH (08:28)
[2019-11-22] MEDS: ZYLOPRIM PO SCH (08:32)
[2019-11-22] MEDS: LOKELMA POWDER PACKET PO SCH (08:33)
[2019-11-22 09:24] LABS: ANISOCYTOSIS 1+; HYPOCHROM 2+; LYMPHS 92 % (21-51); SEGS 8 % (42-75)
[2019-11-22 09:25] LABS: LARGE PLATELETS OCCASIONAL
[2019-11-22 09:26] LABS: POIKILOCYTOSIS 1+
--- NOTE | 2019-11-22 12:31 | HEMO/ONC PROGRESS NOTE ---
DATE: 11/22/2019 SUBJECTIVE: Mr. Powell is sitting in his hospital bed. He is about to eat lunch. He is in no acute distress. LABORATORY DATA: White blood cells are 7.65, hemoglobin is 8.0, platelets are 31,000. ANC is 450. Sodium is 141, potassium 4.2, chloride 104, CO2 of 23, BUN of 44, creatinine 2.0, and glucose is 92. OBJECTIVE: Vital Signs: Temperature 98.8 degrees, heart rate 93, respirations 19, blood pressure 97/69, O2 saturation 100% on room air. CV: Regular rate. Respiratory: Normal respiratory effort. Gastrointestinal: Abdomen is nondistended, soft. Musculoskeletal: No obvious bony abnormalities. Neurologic: The patient is alert and oriented. ASSESSMENT AND PLAN: 1. Chronic lymphocytic leukemia. The patient will continue to hold treatment. Plan will be to see him in the office, repeat labs, and discuss with him when we can resume his Rituxan and Venetoclax. 2. Anemia. This is better after receiving a unit of packed red blood cells yesterday. Will continue to monitor and transfuse as needed. 3. Thrombocytopenia. This is secondary to his treatment as well as his underlying disease. Overall stable. No active bleeding. No need for any transfusion. 4. Neutropenia. Again, the patient's blood count has been low. This is likely from his previous treatment. We do not feel that this should cause him to remain in the hospital. We could start growth factor as needed. 5. Acute renal failure. This is improving slowly and steadily. Continue adequate hydration. Continue management per Nephrology. 6. Disposition. We would be agreeable for the patient to be discharged home today. Would follow him closely as an outpatient with frequent labs and discuss further treatment planning in our office. Dictated by SYED Terry for Ana Foster MD cc: Ana Foster MD I have seen and examined the patient and the above note reflects my history, physical exam, assessment and plan. Ana PERES
[2019-11-22] MEDS ORDERED: GRANIX SUBQ ONE (12:45)
[2019-11-22] MEDS ORDERED: LEVAQUIN PO ONE (15:13)
[2019-11-22 15:31] VITALS: BP 103/61
--- NOTE | 2019-11-22 15:37 | DISCHARGE SUMMARY ---
ADMISSION DATE: 11/15/2019 DISCHARGE DATE: 11/22/2019 DISCHARGE DIAGNOSES: 1. Pneumonia, right upper lobe and middle lobe pneumonia. 2. Symptomatic anemia associated with chemotherapy and chronic lymphocytic leukemia. 3. Chronic lymphocytic leukemia with active treatment. 4. Acute on chronic kidney injury with current kidney baseline function around stage IIIB. 5. Chronic weakness. CONSULTATIONS: 1. Dr. Batres, nephrology. 2. Dr. Ana Foster, hematology/oncology. HISTORY OF PRESENT ILLNESS AND HOSPITAL COURSE: Briefly, this is a 54-year-old gentleman with CLL who is currently getting venetoclax and came in with low counts. There is no full H and P. Fever of 102.8. There was concern over tumor lysis syndrome. He was admitted directly by Dr. Foster. She had given him rasburicase for tumor lysis. His initial labs showed a hemoglobin of 5.8, a white count of 23,000, hematocrit of 18, platelets of 73,000. His kidney function on admission was a BUN of 138 and a creatinine of 5.1. AST and ALT of 233 and 538, potassium of 6.6. There was some concern over possible IVC compression syndrome due to his extensive retroperitoneal and mesenteric adenopathy. He had a right upper lobe pneumonia. Ultrasound though did not reveal any thrombus or obstruction in the IVC. Nephrology was consulted. He was placed on IV fluids. I believe he got another dose of rasburicase. He was placed on IV bicarbonate; in particular, because of the hyperkalemia, renal failure, and tumor lysis syndrome. Kidneys, there was concern over possible pyelonephritis. Hematology/oncology was consulted. I think again they did give him another dose of rasburicase. He had venetoclax and Rituxan. He slowly improved though his kidney function. Hemoglobin and hematocrit improved. Prolongation of hospitalization was related to drop in his blood counts. His white count started to decrease. His hemoglobin and hematocrit initially plateaued and then on the , dropped to 6 and 21 without any evidence of bleeding. His BUN and creatinine stabilized. At the time of discharge, it was down to 44 and 2. His hemoglobin and hematocrit came up to 8 and 26 but he got a total of 4 units of blood during his hospital course. He was breathing comfortably on room air. Chest x-ray was stable. He has been afebrile. Actually, a little bit of fever yesterday but he is not neutropenic. Plan will be to discharge him on renally dosed Levaquin in addition. The venetoclax, though, will be held until Dr. Foster feels ready to resume it. Allopurinol, maintain that for his tumor lysis prophylaxis. We will stop cefepime because it could be making his thrombocytopenia worsen. Again, Levaquin 500 daily for another 7 days and I am also going to give him albuterol inhaler for pulmonary toilet. He will need followup labs this week per Dr. Foster. She is aware of that, saw him on the day of discharge. This is a 32 minute discharge. cc: Brendan Perera MD
[2019-11-23] MEDS ORDERED: PROTONIX [NONFORMULARY] PO SCH (07:00)
== END 2019-11-22 16:50 | disposition home or self-care (01) | DRG 871 ==
LOC: RAD 11:17 → SURHOLD 12:31 → SUATTDRO 12:31 → 4N 13:36 → 3N 11-16 19:23
PROVIDERS: ATTEND Internal Medicine